=== PATIENT | male | born 1930 | race American Indian/Alaskan Native ===

== ENCOUNTER 2017-12-27 15:13 | Inpatient (IN) | payer MEDICARE ==
[2017-12-27 15:15] VITALS: BMI 21.1
[2017-12-27] MEDS ORDERED: Aspirin 325 mg EC Tablets PO STA (16:15)
[2017-12-27] MEDS ORDERED: Aspirin 325 mg EC Tablets PO ONE (16:27)
--- NOTE | 2017-12-27 16:35 | C.PDOC ---
History Of Present Illness 87-year-old male presents to the ED for evaluation of palpitations which began 3 days ago. Patient states he was referred by his [place] clinic doctor. He denies fever, chills, chest pain, shortness of breath, or history of atrial- fibrillation. Time Seen by Provider: 12/27/17 16:09 Chief Complaint (Nursing): Palpitations History Per: Patient History/Exam Limitations: no limitations Onset/Duration Of Symptoms: Days (3) Current Symptoms Are (Timing): Still Present Associated Symptoms: denies: Chest Pain Additional History Per: Patient Past Medical History Reviewed: Historical Data, Nursing Documentation, Vital Signs Vital Signs: Last Vital Signs Temp 98.1 F 12/27/17 15:44 Pulse 91 H 12/27/17 16:57 Resp 20 12/27/17 16:57 BP 157/115 H 12/27/17 16:57 Pulse Ox 97 12/27/17 16:57 - Medical History PMH: Arthritis (GOUT), Benign Prostatic Hyperplasia, HTN, Malignancy (Prostate) Surgical History: No Surg Hx - [facility] Procedures APPLICATION OF SPLINT (05/13/14) INSERT INDWELLING CATH (03/02/14) Family History: States: Unknown Family Hx - Social History Hx Tobacco Use: No Hx Alcohol Use: Yes Hx Substance Use: No - Immunization History Hx Tetanus Toxoid Vaccination: No Hx Influenza Vaccination: No Hx Pneumococcal Vaccination: No Review Of Systems Constitutional: Negative for: Fever, Chills Cardiovascular: Positive for: Palpitations. Negative for: Chest Pain Respiratory: Negative for: Shortness of Breath Physical Exam - Physical Exam Appears: Non-toxic, No Acute Distress, Other (elderly Black male ) Skin: Normal Color, Warm, Dry Head: Atraumatic, Normacephalic Eye(s): bilateral: Normal Inspection Oral Mucosa: Moist Neck: Supple Chest: Symmetrical, No Deformity, No Tenderness Cardiovascular: Other (irregularly irregular ) Respiratory: Normal Breath Sounds, No Rales, No Rhonchi, No Wheezing Extremity: Normal ROM, Capillary Refill (less than 2 seconds ) Neurological/Psych: Oriented x3, Normal Speech, Normal Cognition ED Course And Treatment - Laboratory Results Result Diagrams: 12/27/17 16:45 12/27/17 16:45 Lab Interpretation: Normal (d-dimer, trop, bnp neg.) ECG: Interpreted By Me, Viewed By Me ECG Rhythm: Atrial Fibrillation Rate From EC O2 Sat by Pulse Oximetry: 99 (on RA) Pulse Ox Interpretation: Normal - Radiology CXR: Interpreted by Me CXR Interpretation: Yes: No Acute Disease, Heart Size (+ megaly) Progress Note: Bloodwork, urinalysis, CXR, EKG ordered and reviewed. Aspirin PO and Lopressor PO, lovenox SQ given. Reevaluation Time: 18:13 Reassessment Condition: Improved - Physician Consult Information Outcome Of Conversation: 1814: d/w Dr. Lvoett, Medicine Auditor In Charge covering insured Service pt's, ok to admit. 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 Excellent physical status and exercise tolerance. Needs no assistance. LOW falls risks. Risk/benefit of anticoagulation favors anticoagulation at this time. Disposition Doctor Will See Patient In The: Hospital Counseled Patient/Family Regarding: Studies Performed, Diagnosis - Disposition Disposition: HOSPITALIZED Disposition Time: 18:15 Condition: GOOD Forms: [employer] (Peruvian) - Clinical Impression Clinical Impression: Palpitations, New onset atrial fibrillation - Scribe Statement The provider has reviewed the documentation as recorded by the Scribe (Nita Dent) Provider Attestation: All medical record entries made by the Scribe were at my direction and personally dictated by me. I have reviewed the chart and agree that the record accurately reflects my personal performance of the history, physical exam, medical decision making, and the department course for this patient. I have also personally directed, reviewed, and agree with the discharge instructions and disposition.
[2017-12-27 16:49] LABS: BASO % 0.9 % (0.0-2.0); EOS # 0.1 K/uL (0.0-0.7); EOS % 3.1 % (0.0-4.0); HEMOGLOBIN 13.2 g/dL (12.0-18.0); LYMPH # 1.3 K/uL (1.0-4.3); LYMPH % 28.1 % (20.0-40.0); MEAN CELL VOLUME 91.1 fL (80.0-94.0); MEAN CORPUSCULAR HEMOGLOBIN 31.4 pg (27.0-31.0); MEAN CORPUSCULAR HGB CONC 34.5 g/dL (33.0-37.0); MEAN PLATELET VOLUME 8.6 fL (7.2-11.7); MONO # 0.6 K/uL (0.0-0.8); MONO % 12.8 % (0.0-10.0); NEUT # 2.6 K/uL (1.8-7.0); NEUT % 55.1 % (50.0-75.0); NRBC % 0.2 % (0.0-2.0); RBC 4.19 Mil/uL (4.40-5.90); RED CELL DISTRIBUTION WIDTH 13.6 % (11.5-14.5); WHITE BLOOD COUNT 4.7 K/uL (4.8-10.8)
[2017-12-27 17:04] LABS: ALB/GLOB RATIO 1.3 (1.0-2.1); ALT/SGPT 33 U/L (21-72); AST/SGOT 42 U/L (17-59); BLOOD UREA NITROGEN 18 mg/dL (9-20); CALCIUM 9.3 mg/dl (8.6-10.4); GFR AFRICAN-AMERICAN > 60; GFR NON-AFRICAN AMERICAN 58
[2017-12-27 17:15] LABS: B-TYPE NATRIURETIC PEPTIDE 2080 pg/mL (0-900)
[2017-12-27 17:19] LABS: INR 1.1; PARTIAL THROMBOPLASTIN TIME 35 SECONDS (21-34); PROTHROMBIN TIME 11.7 SECONDS (9.7-12.2)
[2017-12-27 17:20] LABS: D DIMER < 200 ng/mlDDU (0-243)
[2017-12-27] MEDS ORDERED: Enoxaparin 40 mg Syringe SC STA (18:05)
[2017-12-27] MEDS ORDERED: Enoxaparin 80 mg Syringe ONE (18:10)
[2017-12-27 18:18] LABS: URINE BACTERIA RARE (<OCC); URINE BILIRUBIN NEGATIVE (NEGATIVE); URINE BLOOD NEGATIVE (NEGATIVE); URINE CLARITY Clear (Clear); URINE COLOR Yellow (YELLOW); URINE GLUCOSE (UA) NORMAL (Normal); URINE LEUKOCYTE ESTERASE NEG Leu/uL (Negative); URINE PROTEIN NEGATIVE (NEGATIVE); URINE UROBILINOGEN NORMAL mg/dL (0.2-1.0)
[2017-12-27] MEDS ORDERED: Potassium Chloride 20 mEq/15 ml LIQ UD PO STA (18:53)
[2017-12-27 20:19] LABS: CK-MB 2.72 ng/mL (0.0-3.38); TROPONIN I 0.025 ng/mL (0.00-0.120)
[2017-12-27 21:13] VITALS: RESP 20
[2017-12-28 02:41] LABS: CK-MB 1.57 ng/mL (0.0-3.38); TROPONIN I 0.032 ng/mL (0.00-0.120)
[2017-12-28 09:13] LABS: CK-MB 1.45 ng/mL (0.0-3.38); TROPONIN I 0.034 ng/mL (0.00-0.120)
[2017-12-28] MEDS: Pantoprazole 20 mg EC Tab PO SCH (09:38)
[2017-12-28] MEDS ORDERED: Enoxaparin 40 mg Syringe SC SCH (10:00)
--- NOTE | 2017-12-28 16:42 | RAD ---
PROCEDURE: CHEST RADIOGRAPH, 1 VIEW HISTORY: SOB COMPARISON: 12/21/2015. FINDINGS: LUNGS: The lungs are well inflated and clear. There is left basilar scarring. PLEURA: No pneumothorax or pleural fluid seen. CARDIOVASCULAR: Again seen is mild cardiomegaly. Atherosclerotic aortic arch calcifications are present. OSSEOUS STRUCTURES: No significant abnormalities. VISUALIZED UPPER ABDOMEN: Normal. OTHER FINDINGS: None. IMPRESSION: No active pulmonary disease.
[2017-12-28] MEDS ORDERED: Potassium Chloride 20 mEq ER Tab PO ONE (18:00)
[2017-12-29 09:22] VITALS: PULSE 135; TEMP 98.2; O2SAT 99
[2017-12-29] MEDS: Pantoprazole 20 mg EC Tab PO SCH (09:41)
[2017-12-29 10:39] VITALS: BP 148/96
--- NOTE | 2017-12-29 12:16 | CP.PCM.CON ---
History of Present Illness - History of Present Illness History of Present Illness: 87 year old with HTN, ? prostate disease, presented with palpitation , found with A fib, ? prior hx of A Fib, rate control, consider B patricia, ncoag , follow with echo, TSH, TSH is normal Review of Systems - Constitutional Constitutional: Anorexia, Weakness - EENT Eyes: absent: Discharge Ears: absent: Ear Discharge Nose/Mouth/Throat: absent: Epistaxis - Cardiovascular Cardiovascular: Palpitations. absent: Acrocyanosis, Chest Pain, Leg Edema, Syncope - Respiratory Respiratory: absent: Cough, Hemoptysis, Dyspnea on Exertion - Gastrointestinal Gastrointestinal: absent: Abdominal Pain, Diarrhea, Melena, Vomiting - Genitourinary Genitourinary: absent: Change in Urinary Stream Past Patient History - Infectious Disease Hx of Infectious Diseases: None - Past Social History Smoking Status: Never Smoked - CARDIAC Hx Hypertension: Yes - MUSCULOSKELETAL/RHEUMATOLOGICAL Hx Arthritis: Yes (GOUT) - GENITOURINARY/GYNECOLOGICAL Hx Prostate Cancer: Yes - PSYCHIATRIC Hx Substance Use: No - SURGICAL HISTORY Hx Surgeries: Yes Hx Orthopedic Surgery: Yes - ANESTHESIA Hx Anesthesia: Yes Hx Anesthesia Reactions: No Meds Allergies/Adverse Reactions: Allergies Allergy/AdvReac Type Severity Reaction Status Date / Time No Known Allergies Allergy Verified 03/02/14 06:55 - Medications Medications: Current Medications Apixaban (Eliquis) 5 mg PO Q12 [facility] Last Admin: 12/29/17 09:41 Dose: 5 mg Aspirin (Ecotrin) 81 mg PO DAILY [facility] Last Admin: 12/29/17 09:41 Dose: 81 mg Diltiazem HCl (Cardizem) 30 mg PO QID [facility] Last Admin: 12/29/17 10:38 Dose: 30 mg Finasteride (Proscar) 5 mg PO DAILY [facility] Last Admin: 12/29/17 09:41 Dose: 5 mg Lisinopril (Zestril) 40 mg PO DAILY [facility] Last Admin: 12/29/17 09:41 Dose: 40 mg Pantoprazole Sodium (Protonix Ec Tab) 20 mg PO DAILY [facility] Last Admin: 12/29/17 09:41 Dose: 20 mg Rosuvastatin Calcium (Crestor) 10 mg PO HS [facility] Last Admin: 12/28/17 21:54 Dose: 10 mg Tramadol HCl (Ultram) 50 mg PO TID PRN PRN Reason: Pain, moderate (4-7) Physical Exam - Constitutional Appears: Non-toxic - Head Exam Head Exam: ATRAUMATIC - Eye Exam Eye Exam: EOMI - ENT Exam ENT Exam: TM's Normal Bilaterally - Neck Exam Neck exam: Negative for: Lymphadenopathy, Thyromegaly - Respiratory Exam Respiratory Exam: Clear to Auscultation Bilateral. absent: Rales - Cardiovascular Exam Cardiovascular Exam: REGULAR RHYTHM, Systolic Murmur - GI/Abdominal Exam GI & Abdominal Exam: Normal Bowel Sounds. absent: Organomegaly - Rectal Exam Rectal Exam: Deferred - Extremities Exam Extremities exam: Positive for: normal capillary refill. Negative for: calf tenderness - Neurological Exam Neurological exam: Alert, Oriented x3 - Psychiatric Exam Psychiatric exam: Normal Mood - Skin Skin Exam: Dry Results - Vital Signs Recent Vital Signs: Last Vital Signs Temp 98.2 F 12/29/17 08:10 Pulse 135 H 12/29/17 08:10 Resp 20 12/29/17 08:10 BP 148/96 H 12/29/17 09:00 Pulse Ox 99 12/29/17 08:10 - Labs Result Diagrams: 12/27/17 16:45 12/27/17 16:45 Assessment & Plan (1) New onset atrial fibrillation Status: Acute Comment: Rate controlled, on anticoagulation, consider beta patricia follow-up with echocardiogram (2) Palpitations Status: Acute Comment: Questionable history of atrial fibrillation follow-up with echocardiogram.
--- NOTE | 2017-12-29 17:15 | CP.PCM.PN ---
Subjective - Date & Time of Evaluation Date of Evaluation: 12/29/17 Time of Evaluation: 12:00 - Subjective Subjective: House Doc Note: Patient has decided to leave the hospital against medical advice. The patient is competent and understands the risks of leaving, including permanent disability and/or , and has had an opportunity to ask questions about his/ her condition. Patient accepts all risk and liability. Paper work filed. Attending notified by RN. The patient has been informed that he/she may return for care at any time, and patient will follow-up with PMD urgently. Objective - Vital Signs/Intake and Output Vital Signs (last 24 hours): Temp Pulse Resp BP Pulse Ox 98.2 F 135 H 20 148/96 H 99 12/29/17 08:10 12/29/17 08:10 12/29/17 08:10 12/29/17 09:00 12/29/17 09:00 Intake and Output: 12/29/17 12/29/17 06:59 18:59 Output Total 100 Balance -100 - Labs Labs: 12/27/17 16:45 12/27/17 16:45 PT 11.7 SECONDS (9.7-12.2) 12/27/17 16:45 INR 1.1 12/27/17 16:45 APTT 35 SECONDS (21-34) H 12/27/17 16:45 - Additional Findings Additional findings: Appears: Non-toxic, No Acute Distress Skin: Normal Color, Warm, Dry Head: Atraumatic, Normacephalic Eye(s): bilateral: Normal Inspection Oral Mucosa: Moist Neck: Supple Chest: Symmetrical, No Deformity, No Tenderness Cardiovascular: Irregular Rate, +S1, +S2; No murmur appreciated. Respiratory: Normal Breath Sounds, No Rales, No Rhonchi, No Wheezing Extremity: Normal ROM, Capillary Refill (less than 2 seconds ) Neurological/Psych: Oriented x3, Normal Speech, Normal Cognition
--- NOTE | 2017-12-29 22:01 | CP.PCM.HP ---
History of Present Illness - History of Present Illness History of Present Illness: CC: palpitations History Of Present Illness 87-year-old male presents to the ED for evaluation of palpitations which began 3 days ago. Patient states he was referred by his [place] clinic doctor. He denies fever, chills, chest pain, shortness of breath, or history of atrial- fibrillation. Past Patient History - Infectious Disease Hx of Infectious Diseases: None - Past Medical History & Family History Past Medical History?: Yes - Past Social History Smoking Status: Never Smoked - CARDIAC Hx Hypertension: Yes - PULMONARY Hx Respiratory Disorders: No - NEUROLOGICAL Hx Neurological Disorder: No - HEENT Hx HEENT Problems: No - RENAL Hx Chronic Kidney Disease: No - ENDOCRINE/METABOLIC Hx Endocrine Disorders: No - HEMATOLOGICAL/ONCOLOGICAL Hx Blood Disorders: No - MUSCULOSKELETAL/RHEUMATOLOGICAL Hx Arthritis: Yes (GOUT) - GASTROINTESTINAL Hx Gastrointestinal Disorders: No - GENITOURINARY/GYNECOLOGICAL Hx Prostate Cancer: Yes - PSYCHIATRIC Hx Substance Use: No - SURGICAL HISTORY Hx Surgeries: Yes Hx Orthopedic Surgery: Yes - ANESTHESIA Hx Anesthesia: Yes Hx Anesthesia Reactions: No Meds Allergies/Adverse Reactions: Allergies Allergy/AdvReac Type Severity Reaction Status Date / Time No Known Allergies Allergy Verified 03/02/14 06:55 Results - Vital Signs Recent Vital Signs: Last Vital Signs Temp 98.2 F 12/29/17 08:10 Pulse 135 H 12/29/17 08:10 Resp 20 12/29/17 08:10 BP 148/96 H 12/29/17 09:00 Pulse Ox 99 12/29/17 09:00 - Labs Result Diagrams: 12/27/17 16:45 12/27/17 16:45
--- NOTE | 2017-12-29 22:02 | CP.PCM.PN ---
Subjective - Date & Time of Evaluation Date of Evaluation: 12/28/17 Time of Evaluation: 19:00 - Subjective Subjective: 87 year old with HTN, ? prostate disease, presented with palpitation , found with A fib, ? prior hx of A Fib, rate control, consider B patricia, ncoag , follow with echo, TSH Objective - Vital Signs/Intake and Output Vital Signs (last 24 hours): Temp Pulse Resp BP Pulse Ox 98.2 F 135 H 20 148/96 H 99 12/29/17 08:10 12/29/17 08:10 12/29/17 08:10 12/29/17 09:00 12/29/17 09:00 - Labs Labs: 12/27/17 16:45 12/27/17 16:45 PT 11.7 SECONDS (9.7-12.2) 12/27/17 16:45 INR 1.1 12/27/17 16:45 APTT 35 SECONDS (21-34) H 12/27/17 16:45
--- NOTE | 2017-12-29 22:04 | CP.PCM.DIS ---
Provider - Provider Date of Admission: 12/29/17 09:56 Attending physician: Arnulfo Lovett MD Time Spent in preparation of Discharge (in minutes): 45 Hospital Course - Lab Results Lab Results: Most Recent Lab Values WBC 4.7 K/uL (4.8-10.8) L 12/27/17 16:45 RBC 4.19 Mil/uL (4.40-5.90) L 12/27/17 16:45 Hgb 13.2 g/dL (12.0-18.0) 12/27/17 16:45 Hct 38.2 % (35.0-51.0) 12/27/17 16:45 MCV 91.1 fL (80.0-94.0) 12/27/17 16:45 MCH 31.4 pg (27.0-31.0) H 12/27/17 16:45 MCHC 34.5 g/dL (33.0-37.0) 12/27/17 16:45 RDW 13.6 % (11.5-14.5) 12/27/17 16:45 Plt Count 143 K/uL (130-400) D 12/27/17 16:45 MPV 8.6 fL (7.2-11.7) 12/27/17 16:45 Neut % (Auto) 55.1 % (50.0-75.0) 12/27/17 16:45 Lymph % (Auto) 28.1 % (20.0-40.0) 12/27/17 16:45 [place] % (Auto) 12.8 % (0.0-10.0) H 12/27/17 16:45 Eos % (Auto) 3.1 % (0.0-4.0) 12/27/17 16:45 Baso % (Auto) 0.9 % (0.0-2.0) 12/27/17 16:45 Neut # (Auto) 2.6 K/uL (1.8-7.0) 12/27/17 16:45 Lymph # (Auto) 1.3 K/uL (1.0-4.3) 12/27/17 16:45 [place] # (Auto) 0.6 K/uL (0.0-0.8) 12/27/17 16:45 Eos # (Auto) 0.1 K/uL (0.0-0.7) 12/27/17 16:45 Baso # (Auto) 0.0 K/uL (0.0-0.2) 12/27/17 16:45 PT 11.7 SECONDS (9.7-12.2) 12/27/17 16:45 INR 1.1 12/27/17 16:45 APTT 35 SECONDS (21-34) H 12/27/17 16:45 D-Dimer, Quantitative < 200 ng/mlDDU (0-243) 12/27/17 16:45 Sodium 142 mmol/L (132-148) 12/27/17 16:45 Potassium 3.5 mmol/L (3.6-5.2) L 12/27/17 16:45 Chloride 102 mmol/L (98-107) 12/27/17 16:45 Carbon Dioxide 31 mmol/L (22-30) H 12/27/17 16:45 Anion Gap 13 (10-20) 12/27/17 16:45 BUN 18 mg/dL (9-20) 12/27/17 16:45 Creatinine 1.2 mg/dL (0.8-1.5) 12/27/17 16:45 Est GFR ( Amer) > 60 12/27/17 16:45 Est GFR (Non-Af Amer) 58 12/27/17 16:45 Random Glucose 135 mg/dL (75-110) H 12/27/17 16:45 Calcium 9.3 mg/dl (8.6-10.4) 12/27/17 16:45 Total Bilirubin 1.3 mg/dL (0.2-1.3) 12/27/17 16:45 AST 42 U/L (17-59) 12/27/17 16:45 ALT 33 U/L (21-72) 12/27/17 16:45 Alkaline Phosphatase 99 U/L (38-126) 12/27/17 16:45 Total Creatine Kinase 91 U/L (55-170) 12/28/17 08:37 CK-MB (Mass) 1.45 ng/mL (0.0-3.38) 12/28/17 08:37 Troponin I 0.0340 ng/mL (0.00-0.120) 12/28/17 08:37 NT-Pro-B Natriuret Pep 2080 pg/mL (0-900) H 12/27/17 16:45 Total Protein 7.1 g/dL (6.3-8.3) 12/27/17 16:45 Albumin 4.0 g/dL (3.5-5.0) 12/27/17 16:45 Globulin 3.1 gm/dL (2.2-3.9) 12/27/17 16:45 Albumin/Globulin Ratio 1.3 (1.0-2.1) 12/27/17 16:45 TSH 3rd Generation 0.77 mIU/L (0.46-4.68) 12/27/17 19:49 Urine Color Yellow (YELLOW) 12/27/17 18:08 Urine Clarity Clear (Clear) 12/27/17 18:08 Urine pH 7.0 (5.0-8.0) 12/27/17 18:08 Ur Specific [place] 1.015 (1.003-1.030) 12/27/17 18:08 Urine Protein Negative mg/dL (NEGATIVE) 12/27/17 18:08 Urine Glucose (UA) Normal mg/dL (Normal) 12/27/17 18:08 Urine Ketones Negative mg/dL (NEGATIVE) 12/27/17 18:08 Urine Blood Negative (NEGATIVE) 12/27/17 18:08 Urine Nitrate Negative (NEGATIVE) 12/27/17 18:08 Urine Bilirubin Negative (NEGATIVE) 12/27/17 18:08 Urine Urobilinogen Normal mg/dL (0.2-1.0) 12/27/17 18:08 Ur Leukocyte Esterase Neg Carly/uL (Negative) 12/27/17 18:08 Urine WBC (Auto) 4 /hpf (0-5) 12/27/17 18:08 Urine RBC (Auto) 2 /hpf (0-3) 12/27/17 18:08 Urine Bacteria Rare (<OCC) 12/27/17 18:08 - Hospital Course Hospital Course: Patient has decided to leave the hospital against medical advice. The patient is competent and understands the risks of leaving, including permanent disability and/or , and has had an opportunity to ask questions about his/ her condition. Patient accepts all risk and liability. Paper work filed. Attending notified by RN. The patient has been informed that he/she may return for care at any time, and patient will follow-up with PMD urgently. Discharge Plan - Follow Up Plan Condition: GOOD Disposition: AGAINST MEDICAL ADVICE
== END 2017-12-29 12:00 | disposition left against medical advice (07) | DRG 310 ==
LOC: C.ER 15:13 → C.9E 18:08 → C.6T 19:36 → OBSVTOIN 12-29 09:56
PROVIDERS: ADMIT Internal Medicine; ATTEND Internal Medicine
DX: I48.91 Unspecified atrial fibrillation (principal); I10 Essential (primary) hypertension; N40.0 Benign prostatic hyperplasia without lower urinary tract symptoms; Z85.46 Personal history of malignant neoplasm of prostate; M10.9 Gout, unspecified

== ENCOUNTER 2018-08-25 10:08 | Inpatient (IN) | payer MEDICARE ==
[2018-08-25 10:08] VITALS: BMI 21.1
--- NOTE | 2018-08-25 10:42 | C.PDOC ---
History Of Present Illness 88 y/o M c PMHx afib, CHF p/w palpitaitons today and worsenining dyspnea on exertion for years. States that dyspnea and palpitations have been worsening, becoming more frequent and more severe. Denies fever, chills, chest pain, sympt oms currently. Time Seen by Provider: 08/25/18 10:14 Chief Complaint (Nursing): Shortness Of Breath Past Medical History Vital Signs: Last Vital Signs Temp 97.5 F L 08/25/18 10:15 Pulse 89 08/25/18 10:15 Resp 22 08/25/18 10:15 BP 161/101 H 08/25/18 10:15 Pulse Ox 98 08/25/18 10:37 - Medical History PMH: Arthritis (GOUT), Atrial Fibrillation, Benign Prostatic Hyperplasia, HTN, Malignancy (Prostate) Denies: Chronic Kidney Disease - [facility] Procedures APPLICATION OF SPLINT (05/13/14) INSERT INDWELLING CATH (03/02/14) Family History: States: Unknown Family Hx - Social History Hx Tobacco Use: No Hx Alcohol Use: No Hx Substance Use: No - Immunization History Hx Tetanus Toxoid Vaccination: No Hx Influenza Vaccination: No Hx Pneumococcal Vaccination: No Review Of Systems Except As Marked, All Systems Reviewed And Found Negative. Constitutional: Negative for: Fever Gastrointestinal: Negative for: Vomiting Physical Exam - Physical Exam Additional Physical Exam Comments: Constitutional: No acute distress. Head: Normocephalic. Atraumatic. Eyes: PERRL. ENT: Moist mucous membranes. Neck: Supple. Cardiovascular: Irregular rhythm.Regular rate. Radial pulse 2+ bilaterally. Chest: No tenderness. Respiratory: Clear to auscultation bilaterally. GI: Soft. Nontender. Nondistended. Back: No CVA tenderness. Musculoskeletal: Bilateral pitting edema. No tenderness of extremities. Skin: No rash. Neurologic: Alert, no focal deficit. ED Course And Treatment - Laboratory Results Result Diagrams: 08/25/18 10:56 08/25/18 10:56 O2 Sat by Pulse Oximetry: 98 Medical Decision Making Medical Decision Making: EKG Afib 90 bpm, no ST elevations. Impression: Small bilateral pleural effusions. Focal consolidation in the right hilar region and right lung base. Additional patchy consolidative opacification at the left lung base. Cardiomegaly. Atherosclerotic calcification at the aortic knob. Lasix administered. Dr. Quiroz away, Dr. Reynolds accepts patient to medical service. Disposition - Disposition Disposition: HOSPITALIZED Disposition Time: 12:00 Condition: GUARDED Forms: [employer] ([place]) - Clinical Impression Clinical Impression: CHF exacerbation
[2018-08-25 11:01] LABS: BASO % 0.9 % (0.0-2.0); EOS # 0.1 K/uL (0.0-0.7); EOS % 1.7 % (0.0-4.0); HEMOGLOBIN 11.6 g/dL (12.0-18.0); LYMPH % 22.3 % (20.0-40.0); MEAN CELL VOLUME 88.4 fL (80.0-94.0); MEAN CORPUSCULAR HEMOGLOBIN 28.2 pg (27.0-31.0); MEAN CORPUSCULAR HGB CONC 31.9 g/dL (33.0-37.0); MEAN PLATELET VOLUME 8.6 fL (7.2-11.7); MONO # 0.4 K/uL (0.0-0.8); MONO % 8.7 % (0.0-10.0); NEUT # 2.9 K/uL (1.8-7.0); NEUT % 66.4 % (50.0-75.0); NRBC % 0.1 % (0.0-2.0); RBC 4.13 Mil/uL (4.40-5.90); RED CELL DISTRIBUTION WIDTH 16.1 % (11.5-14.5); WHITE BLOOD COUNT 4.4 K/uL (4.8-10.8)
[2018-08-25 11:09] LABS: INR 1.5; PROTHROMBIN TIME 16.9 SECONDS (9.7-12.2)
[2018-08-25 11:14] LABS: ALB/GLOB RATIO 1.1 (1.0-2.1); ALBUMIN 3.6 g/dL (3.5-5.0); ALT/SGPT 32 U/L (21-72); AST/SGOT 33 U/L (17-59); BLOOD UREA NITROGEN 15 mg/dL (9-20); CALCIUM 8.9 mg/dl (8.6-10.4); GFR NON-AFRICAN AMERICAN > 60
[2018-08-25 11:26] LABS: B-TYPE NATRIURETIC PEPTIDE 18000 pg/mL (0-900); CK-MB 1.17 ng/mL (0.0-3.38)
--- NOTE | 2018-08-25 12:13 | RAD ---
Chest x-ray single frontal view HISTORY: Dyspnea on exertion. Comparison: 12/27/2017 Findings: Small bilateral pleural effusions. Focal consolidation in the right hilar region and right lung base. Additional patchy consolidative opacification at the left lung base. Cardiomegaly. Atherosclerotic calcification at the aortic knob. Degenerative changes in the spine and shoulders. Impression: Small bilateral pleural effusions. Focal consolidation in the right hilar region and right lung base. Additional patchy consolidative opacification at the left lung base. Cardiomegaly. Atherosclerotic calcification at the aortic knob.
--- NOTE | 2018-08-25 16:10 | CARD ---
APPROVED REPORT Date of service: 08/25/2018 EKG Measurement Heart [id number] <Conclusion> Atrial fibrillation Anterolateral infarct, age undetermined Abnormal ECG
--- NOTE | 2018-08-25 19:19 | CP.PCM.HP ---
History of Present Illness - History of Present Illness History of Present Illness: pt came to ed for progressive sob Present on Admission - Present on Admission Any Indicators Present on Admission: No Review of Systems - Review of Systems Systems not reviewed;Unavailable: Acuity of Condition - Constitutional Constitutional: Fatigue - EENT Eyes: As Per HPI Ears: As Per HPI Nose/Mouth/Throat: As Per HPI - Cardiovascular Cardiovascular: Dyspnea, Leg Edema - Respiratory Respiratory: Dyspnea, Dyspnea on Exertion - Gastrointestinal Gastrointestinal: As Per HPI - Genitourinary Genitourinary: As Per HPI - Reproductive: Male Reproductive:Male: As Per HPI - Musculoskeletal Musculoskeletal: As Per HPI - Integumentary Integumentary: As Per HPI - Psychiatric Psychiatric: As Per HPI - Endocrine Endocrine: As Per HPI - Hematologic/Lymphatic Hematologic: As Per HPI Past Patient History - Infectious Disease Hx of Infectious Diseases: None - Past Medical History & Family History Past Medical History?: Yes - Past Social History Smoking Status: Never Smoked - CARDIAC Hx Atrial Fibrillation: Yes Hx Hypertension: Yes - PULMONARY Hx Respiratory Disorders: No - NEUROLOGICAL Hx Neurological Disorder: No - HEENT Hx HEENT Problems: No - RENAL Hx Chronic Kidney Disease: No - ENDOCRINE/METABOLIC Hx Endocrine Disorders: No - HEMATOLOGICAL/ONCOLOGICAL Hx Blood Disorders: No - MUSCULOSKELETAL/RHEUMATOLOGICAL Hx Arthritis: Yes (GOUT) - GASTROINTESTINAL Hx Gastrointestinal Disorders: No - GENITOURINARY/GYNECOLOGICAL Hx Prostate Cancer: Yes - PSYCHIATRIC Hx Substance Use: No - SURGICAL HISTORY Hx Surgeries: Yes Hx Orthopedic Surgery: Yes - ANESTHESIA Hx Anesthesia: Yes Hx Anesthesia Reactions: No Meds Allergies/Adverse Reactions: Allergies Allergy/AdvReac Type Severity Reaction Status Date / Time No Known Allergies Allergy Verified 08/25/18 10:22 Physical Exam - Constitutional Appears: Non-toxic - Head Exam Head Exam: ATRAUMATIC - Eye Exam Eye Exam: Normal appearance Pupil Exam: NORMAL ACCOMODATION - ENT Exam ENT Exam: Normal Exam - Neck Exam Neck exam: Positive for: Full Rom - Respiratory Exam Respiratory Exam: Decreased Breath Sounds - Cardiovascular Exam Cardiovascular Exam: Irregular Rhythm, +S1, +S2, +S4 - GI/Abdominal Exam GI & Abdominal Exam: Normal Bowel Sounds - Rectal Exam Rectal Exam: Deferred - Extremities Exam Extremities exam: Positive for: pedal edema - Back Exam Back exam: NORMAL INSPECTION - Neurological Exam Neurological exam: Alert, Oriented x3 - Psychiatric Exam Psychiatric exam: Normal Affect - Skin Skin Exam: Normal Color Results - Vital Signs Recent Vital Signs: Last Vital Signs Temp 98.3 F 08/25/18 15:34 Pulse 83 08/25/18 15:34 Resp 20 08/25/18 15:34 BP 145/89 08/25/18 15:34 Pulse Ox 100 08/25/18 15:34 - Labs Result Diagrams: 08/25/18 10:56 08/25/18 10:56 Labs: Laboratory Results - last 24 hr 08/25/18 08/25/18 08/25/18 10:56 10:56 10:56 WBC 4.4 L RBC 4.13 L Hgb 11.6 L Hct 36.5 MCV 88.4 D MCH 28.2 MCHC 31.9 L RDW 16.1 H Plt Count 190 MPV 8.6 Neut % (Auto) 66.4 Lymph % (Auto) 22.3 [place] % (Auto) 8.7 Eos % (Auto) 1.7 Baso % (Auto) 0.9 Neut # (Auto) 2.9 Lymph # (Auto) 1.0 [place] # (Auto) 0.4 Eos # (Auto) 0.1 Baso # (Auto) 0.0 PT 16.9 H INR 1.5 APTT 36 H Sodium 142 Potassium 4.0 Chloride 106 Carbon Dioxide 29 Anion Gap 11 BUN 15 Creatinine 1.0 Est GFR ( Amer) > 60 Est GFR (Non-Af Amer) > 60 Random Glucose 189 H D Calcium 8.9 Total Bilirubin 1.9 H AST 33 ALT 32 Alkaline Phosphatase 112 Total Creatine Kinase 52 L CK-MB (Mass) 1.17 Troponin I 0.0340 NT-Pro-B Natriuret Pep 10644 H Total Protein 6.7 Albumin 3.6 Globulin 3.1 Albumin/Globulin Ratio 1.1 Assessment & Plan - Assessment and Plan (Free Text) Assessment: exacerbation chf at fibrilation hyperglyceamia htn Plan: as per orders - Date & Time Date: 08/25/18 Time: 19:23
[2018-08-25] MEDS: Metoprolol Succinate 25 mg XL Tab PO SCH (19:49)
[2018-08-25] MEDS: Enoxaparin 60 mg Syringe SC SCH (22:57)
[2018-08-26 07:39] LABS: HEMOGLOBIN 10.9 g/dL (12.0-18.0); MEAN CELL VOLUME 88.4 fL (80.0-94.0); MEAN CORPUSCULAR HEMOGLOBIN 28.1 pg (27.0-31.0); MEAN CORPUSCULAR HGB CONC 31.8 g/dL (33.0-37.0); MEAN PLATELET VOLUME 8.8 fL (7.2-11.7); RBC 3.88 Mil/uL (4.40-5.90); RED CELL DISTRIBUTION WIDTH 16.7 % (11.5-14.5)
[2018-08-26 07:53] LABS: ALT/SGPT 25 U/L (21-72); AST/SGOT 28 U/L (17-59); BLOOD UREA NITROGEN 18 mg/dL (9-20); CALCIUM 8.9 mg/dl (8.6-10.4); GFR NON-AFRICAN AMERICAN > 60
[2018-08-26 07:55] LABS: B-TYPE NATRIURETIC PEPTIDE 15100 pg/mL (0-900)
[2018-08-26] MEDS: Metoprolol Succinate 25 mg XL Tab PO SCH (10:16)
[2018-08-26] MEDS: Calcium-Vit D 500 mg-200 Units Tab UD PO SCH (10:16)
[2018-08-26] MEDS: Enoxaparin 60 mg Syringe SC SCH ×2 (10:36→23:36)
--- NOTE | 2018-08-26 11:01 | CP.PCM.PN ---
Subjective - Date & Time of Evaluation Date of Evaluation: 08/26/18 Time of Evaluation: 10:59 - Subjective Subjective: PT STILL HAS SOB HAS ANEAMIA Objective - Vital Signs/Intake and Output Vital Signs (last 24 hours): Temp Pulse Resp BP Pulse Ox 97.9 F 70 20 135/67 100 08/26/18 00:15 08/26/18 07:42 08/26/18 00:15 08/26/18 10:35 08/26/18 00:15 Intake and Output: 08/26/18 08/26/18 06:59 18:59 Intake Total 0 Output Total 800 Balance -800 - Medications Medications: Current Medications Allopurinol (Zyloprim) 100 mg PO DAILY [facility] Last Admin: 08/26/18 10:16 Dose: 100 mg Aspirin (Aspirin Chewable) 81 mg PO DAILY [facility] Last Admin: 08/26/18 10:16 Dose: 81 mg Calcium/Vitamin D (Oyster Shell Calcium/Vitamin D 500 Mg-200 Iu) 1 tab PO DAILY [facility] Last Admin: 08/26/18 10:16 Dose: 1 tab Enoxaparin Sodium (Lovenox) 60 mg SC Q12 [facility] Last Admin: 08/26/18 10:36 Dose: 60 mg Furosemide (Lasix) 40 mg IVP DAILY [facility] Last Admin: 08/26/18 10:35 Dose: 40 mg Indomethacin (Indocin) 25 mg PO TID PRN PRN Reason: pain Influenza Virus Vaccine (Flucelvax Quad [id number] Syr) 60 mcg IM .ONCE ONE Stop: 08/27/18 10:01 Lisinopril (Zestril) 40 mg PO DAILY [facility] Last Admin: 08/26/18 10:15 Dose: 40 mg Metoprolol Succinate (Toprol Xl) 25 mg PO DAILY [facility] Last Admin: 08/26/18 10:16 Dose: 25 mg Pneumococcal Polyvalent Vaccine (Pneumovax 23 Vaccine) 0.5 ml IM .ONCE ONE Stop: 08/27/18 10:01 Tamsulosin HCl (Flomax) 0.4 mg PO DAILY [facility] Last Admin: 08/26/18 10:35 Dose: 0.4 mg Thiamine HCl (Vitamin B1 Tab) 100 mg PO DAILY [facility] Last Admin: 08/26/18 10:16 Dose: 100 mg - Labs Labs: 08/26/18 07:04 08/26/18 07:04 PT 16.9 SECONDS (9.7-12.2) H 08/25/18 10:56 INR 1.5 08/25/18 10:56 APTT 36 SECONDS (21-34) H 08/25/18 10:56 - Constitutional Appears: Non-toxic - Head Exam Head Exam: ATRAUMATIC - Eye Exam Eye Exam: Normal appearance Pupil Exam: NORMAL ACCOMODATION - ENT Exam ENT Exam: Mucous Membranes Moist - Respiratory Exam Respiratory Exam: Decreased Breath Sounds - Cardiovascular Exam Cardiovascular Exam: REGULAR RHYTHM - GI/Abdominal Exam GI & Abdominal Exam: Normal Bowel Sounds - Extremities Exam Additional comments: OEADEAMA - Back Exam Back Exam: NORMAL INSPECTION - Neurological Exam Neurological Exam: Alert, Awake, Oriented x3 - Psychiatric Exam Psychiatric exam: Normal Affect - Skin Skin Exam: Pallor Assessment and Plan - Assessment and Plan (Free Text) Assessment: CHF ANEAMIA Plan: PER ORDERS
[2018-08-26] MEDS ORDERED: Iohexol 240 (50 ml) PO ONE (11:30)
--- NOTE | 2018-08-26 15:47 | CARD ---
APPROVED REPORT Date of service: 08/26/2018 EXAM: Two-dimensional and M-mode echocardiogram with Doppler and color Doppler. Other Information Quality : GoodRhythm : INDICATION Dyspnea Congestive Heart Failure Palpitations RISK FACTORS Hypertension Hyperlipidemia 2D DIMENSIONS IVSd1.6 (0.7-1.1cm)LVDd4.5 (3.9-5.9cm) PWd1.7 (0.7-1.1cm)LA Jbnsup126 (18-58mL) LVDs4.0 (2.5-4.0cm)FS (%) 10.5 % LVEF (%)33.0 (>50%)LVEF (Baker's)33.61 % IVC0.00 cm M-Mode DIMENSIONS RVDd2.64 (2.1-3.2cm)Left Atrium (MM)4.95 (2.5-4.0cm) IVSd0.98 (0.7-1.1cm)Aortic Root3.27 (2.2-3.7cm) LVDd6.25 (4.0-5.6cm)Aortic Cusp Exc.2.21 (1.5-2.0cm) PWd0.91 (0.7-1.1cm)FS (%) 15 % LVDs5.30 (2.0-3.8cm)TAPSE16.05 cm LVEF (%)31 (>50%) Mitral Valve MV E Lpffkkhx46.0cm/sMV A Jccqudsz59.6cm/sE/A ratio2.1 QLRG228.87 cm/s TDI Lateral E' Peak V7.96cm/sMedial E' Peak V4.35cm/sE/Lateral E'9.7 E/Medial E'17.7 Tricuspid Valve TR Peak Hzwspsjg437nx/sTR Peak Gr.96miPqHIWG25diHj LEFT VENTRICLE The left ventricle is normal size. There is mild to moderate concentric left ventricular hypertrophy. The systolic function is severely impaired. There is global hypokinesis of the left ventricle. No left ventricle thrombus noted on this study. RIGHT VENTRICLE The right ventricle is normal size. There is normal right ventricular wall thickness. Systolic function is moderately reduced. ATRIA The left atrium is moderately dilated. The right atrium is moderately dilated. AORTIC VALVE The aortic valve is mildly thickened. No aortic regurgitation is present. MITRAL VALVE The mitral valve is normal in structure. There is no mitral valve stenosis. Mitral regurgitation is moderate to severe. TRICUSPID VALVE The tricuspid valve is normal in structure. There is moderate to severe tricuspid regurgitation. There is mild to moderate pulmonary hypertension. PULMONIC VALVE There is moderate pulmonic valvular regurgitation. GREAT VESSELS The aortic root is normal in size. The IVC is dilated. PERICARDIAL EFFUSION There is a small pericardial effusion. There is moderate pleural effusion. <Conclusion> The left ventricle is normal size. There is mild to moderate concentric left ventricular hypertrophy. The systolic function is severely impaired. There is global hypokinesis of the left ventricle. Mitral regurgitation is moderate to severe. There is moderate to severe tricuspid regurgitation. There is mild to moderate pulmonary hypertension. There is moderate pulmonic valvular regurgitation. There is moderate pleural effusion.
--- NOTE | 2018-08-26 16:24 | CT ---
Date of service: 08/26/2018 PROCEDURE: CT Abdomen and Pelvis with contrast HISTORY: ANEAMIA COMPARISON: None. TECHNIQUE: Helical CT of the abdomen and pelvis was performed following oral contrast administration only. Intravenous contrast was not administered as per referring physician request. Coronal and sagittal reformats were generated. Contrast dose: None Radiation dose: Total exam DLP = 849.31 mGy-cm. This CT exam was performed using one or more of the following dose reduction techniques: Automated exposure control, adjustment of the mA and/or kV according to patient size, and/or use of iterative reconstruction technique. FINDINGS: LOWER THORAX: Cardiomegaly is noted as well as large right pleural effusion and mild left pleural effusion. These exerts compression atelectasis at the bilateral lower lobes at their respective sides with linear atelectasis identified at the right middle lobe as well. Underlying pneumonia is not excluded bilaterally. LIVER: Unremarkable. No gross lesion or ductal dilatation. GALLBLADDER AND BILE DUCTS: Gallbladder is contracted. No radiodense cholelithiasis identified in the lumen. PANCREAS: Unremarkable. No gross lesion or ductal dilatation. SPLEEN: Unremarkable. ADRENALS: Unremarkable. No mass. KIDNEYS AND URETERS: Unremarkable. No hydronephrosis. No solid mass. VASCULATURE: Nonaneurysmal abdominal aortic calcific atherosclerotic changes are identified. BOWEL: No bowel obstruction identified. No gross mural thickening. Process small bowel appears normal. Moderate retained fecal material scattered throughout various large-bowel segments, primarily at the right hemicolon. No large mass identified. Evaluation of the bowel that is unopacified is compromised by extensive anasarca. APPENDIX: Not identified. PERITONEUM: Limited abdominal ascites identified. Increased density seen throughout the intra and extra abdominal fat compatible with anasarca, appear relatively prominent. LYMPH NODES: Unremarkable. No enlarged lymph nodes. BLADDER: Unremarkable. REPRODUCTIVE: Enlarged prostate gland identified. BONES: No acute fracture. OTHER FINDINGS: None. IMPRESSION: 1. No findings directly attributable to neoplasm appreciated. Lack venous contrast at the presence of relatively prominent anasarca limits interpretation. 2. Abdominal ascites. 3. Incidental large right pleural effusion, mild left pleural effusion. Cardiomegaly noted.
--- NOTE | 2018-08-26 23:21 | CON ---
DATE: 08/26/2018 CARDIOLOGY CONSULTATION REASON FOR CONSULTATION: Atrial fibrillation and exacerbation of congestive heart failure. HISTORY OF PRESENT ILLNESS: The patient is an 88-year-old male is an US , presented because of shortness of breath and palpitation. The patient is being treated at the [facility] but at this time, he decided to come to [facility] because it is closer to him according to the patient. The patient was admitted in 12/2017 last year for atrial fibrillation. The patient has a history of prostatic carcinoma and was treated by Dr. Bashir in the past. SOCIAL HISTORY: The patient is a former smoker. He is nondrinker. CURRENT MEDICATIONS: Aspirin 81 mg once a day, Flomax 0.4 mg once a day, Indocin 25 mg t.i.d., Lasix 20 mg intravenous daily, Lovenox 60 mg subcutaneous once a day, Toprol-XL 25 mg once a day, thiamine 100 mg once a day, Zestril 40 mg once a day, allopurinol 100 mg daily. REVIEW OF SYSTEMS: No nausea or vomiting. No fever or chills. No dizziness or syncope. PAST MEDICAL HISTORY: Hypertension, gouty arthritis, prostatic CA, congestive heart failure, and atrial fibrillation. PHYSICAL EXAMINATION: GENERAL: The patient is an elderly male who does not appear to be in acute distress. VITAL SIGNS: Blood pressure 151/93, heart rate 72, temperature 97.9, respirations 20. HEENT: Pale conjunctivae. CHEST: Bibasilar crackles. HEART: S1 and S2 are regular. ABDOMEN: Soft. EXTREMITIES: Trace leg edema. LABORATORY DATA: Hemoglobin and hematocrit 10.9 and 34.3, white count , and platelet counts 168,000. Today's SMA-7: Sodium 141, potassium 3.7, chloride 103, CO2 of 34, glucose 137, BUN 18, creatinine 1. ProBNP is 18,000. Troponin 0.034 and 0.048. INR is 1.5. D-dimer is less than 200. Chest x-ray revealed cardiomegaly, mild CHF, right lower lobe infiltrate, and possible effusion. EKG revealed atrial fibrillation and anterolateral infarct of indeterminate age. ASSESSMENT: 1. Exacerbation of congestive heart failure. 2. Chronic atrial fibrillation. 3. History of prostatic carcinoma. 4. Uncontrolled diabetes mellitus. RECOMMENDATIONS: Continue aspirin 81 mg once a day, Indocin 25 mg t.i.d. Increase Lasix to 40 mg intravenously twice a day. Continue subcutaneous Lovenox 60 mg twice a day, Toprol-XL 25 mg once a day, thiamine 100 mg once a day, Zestril 40 mg once a day. I will review the echocardiographic study performed today. Stewart Bloom MD
[2018-08-27 08:16] LABS: ALB/GLOB RATIO 1.1 (1.0-2.1); ALBUMIN 3.2 g/dL (3.5-5.0); ALT/SGPT 30 U/L (21-72); AST/SGOT 35 U/L (17-59); BLOOD UREA NITROGEN 18 mg/dL (9-20); GFR NON-AFRICAN AMERICAN > 60
[2018-08-27] MEDS: Metoprolol Succinate 25 mg XL Tab PO SCH (09:43)
[2018-08-27] MEDS: Enoxaparin 60 mg Syringe SC SCH (09:45)
[2018-08-27] MEDS: Calcium-Vit D 500 mg-200 Units Tab UD PO SCH (09:46)
[2018-08-27] MEDS ORDERED: Pneumococcal 23-Valent Vaccine IM ONE (10:00)
[2018-08-27] MEDS ORDERED: Influenza Vaccine 60 mcg/0.5 mL SYR (4YR UP) IM ONE (10:00)
--- NOTE | 2018-08-27 10:44 | PCM.SURG1 ---
Surgeon's Initial Post Op Note - Surgeon's Notes Surgeon: Tom Callahan MD [employer]liance [employer] Counter Clerk: None Type of Anesthesia: Local Pre-Operative Diagnosis: Right pleural effusion Operative Findings: US showed a large right effusion Post-Operative Diagnosis: Right pleural effusion Operation Performed: US guided right thoracentesis Specimen/Specimens Removed: 1300 cc of straw colored fluid Estimated Blood Loss: EBL {In ML}: 0 Blood Products Given: N/A Drains Used: No Drains Post-Op Condition: Fair Date of Surgery/Procedure: 08/27/18 Time of Surgery/Procedure: 10:40
--- NOTE | 2018-08-27 12:58 | US ---
PROCEDURE: Date of procedure: 08/27/2018 Procedure: 1. Ultrasound-guided Right thoracentesis, CPT 31530 Medications: 6cc 1% Lidocaine HISTORY: Right pleural effusion, shortness of breath TECHNIQUE: Following informed consent ,the Patients' right chest was marked. Procedure time-out was called, and the patient was placed in the sitting position and limited ultrasound showed a large right effusion. The patient's right back was prepped and draped in the usual sterile fashion. After the skin was anesthetized with lidocaine, a drainage catheter was advanced under ultrasound guidance into the pleural space. Ultrasound-guided thoracentesis was performed. A total of 1300 cubic centimeters of straw-colored fluid removed without complication. A Xeroform dressing was applied. IMPRESSION: Ultrasound guided Right thoracentesis. There were no immediate complications.
[2018-08-27 14:13] LABS: BODY FLUID TYPE PLEURAL
--- NOTE | 2018-08-27 14:33 | CP.PCM.PN ---
Subjective - Date & Time of Evaluation Date of Evaluation: 08/27/18 Time of Evaluation: 14:30 - Subjective Subjective: pt had plerosyntethesis a lot of fluid removed breathing beter Objective - Vital Signs/Intake and Output Vital Signs (last 24 hours): Temp Pulse Resp BP Pulse Ox 97.9 F 65 20 127/74 98 08/27/18 08:36 08/27/18 08:36 08/27/18 08:36 08/27/18 09:45 08/27/18 08:36 Intake and Output: 08/27/18 08/27/18 06:59 18:59 Output Total 400 Balance -400 - Medications Medications: Current Medications Allopurinol (Zyloprim) 100 mg PO DAILY [facility] Last Admin: 08/27/18 09:42 Dose: 100 mg Aspirin (Aspirin Chewable) 81 mg PO DAILY [facility] Last Admin: 08/27/18 09:42 Dose: 81 mg Calcium/Vitamin D (Oyster Shell Calcium/Vitamin D 500 Mg-200 Iu) 1 tab PO DAILY [facility] Last Admin: 08/27/18 09:46 Dose: 1 tab Enoxaparin Sodium (Lovenox) 60 mg SC Q12 [facility] Last Admin: 08/27/18 09:45 Dose: Not Given Furosemide (Lasix) 40 mg IVP BID [facility] Last Admin: 08/27/18 09:45 Dose: 40 mg Indomethacin (Indocin) 25 mg PO TID PRN PRN Reason: pain Lisinopril (Zestril) 40 mg PO DAILY [facility] Last Admin: 08/27/18 09:43 Dose: 40 mg Metoprolol Succinate (Toprol Xl) 25 mg PO DAILY [facility] Last Admin: 08/27/18 09:43 Dose: 25 mg Tamsulosin HCl (Flomax) 0.4 mg PO DAILY [facility] Last Admin: 08/27/18 09:43 Dose: 0.4 mg Thiamine HCl (Vitamin B1 Tab) 100 mg PO DAILY [facility] Last Admin: 08/27/18 09:42 Dose: 100 mg - Labs Labs: 08/26/18 07:04 08/27/18 07:49 PT 16.9 SECONDS (9.7-12.2) H 08/25/18 10:56 INR 1.5 08/25/18 10:56 APTT 36 SECONDS (21-34) H 08/25/18 10:56 - Constitutional Appears: Non-toxic - Head Exam Head Exam: ATRAUMATIC - Eye Exam Eye Exam: Normal appearance Pupil Exam: NORMAL ACCOMODATION - ENT Exam ENT Exam: Mucous Membranes Moist - Respiratory Exam Respiratory Exam: NORMAL BREATHING PATTERN - Cardiovascular Exam Cardiovascular Exam: REGULAR RHYTHM - GI/Abdominal Exam GI & Abdominal Exam: Normal Bowel Sounds - Rectal Exam Rectal Exam: NORMAL INSPECTION - Exam Exam: NORMAL INSPECTION - Extremities Exam Extremities Exam: Normal Capillary Refill - Back Exam Back Exam: NORMAL INSPECTION - Neurological Exam Neurological Exam: Alert, Normal Gait, Oriented x3 - Psychiatric Exam Psychiatric exam: Normal Mood - Skin Skin Exam: Normal Color Assessment and Plan - Assessment and Plan (Free Text) Assessment: chf pleural efusion s/p aspiration Plan: cont as ordered
[2018-08-27 15:18] LABS: BF GROSS APPEARANCE SL CLOUDY (CLEAR)
[2018-08-27 15:19] LABS: BODY FLUID MONO/MACROPHAGE 1 % (0-0); BODY FLUID TOTAL COUNT 100 (0-0)
--- NOTE | 2018-08-27 19:15 | PN ---
DATE: 08/27/2018 SUBJECTIVE: The patient denies any chest pain at this time. Shortness of breath has improved. The patient underwent ultrasound-guided right thoracocentesis with removal of 1500 mL of straw-colored fluid. PHYSICAL EXAMINATION: VITAL SIGNS: Blood pressure 124/74, heart rate 65, temperature 97.9, respiration 20. HEENT: Pale conjunctivae. CHEST: Diminished breath sounds over the bases. HEART: S1 and S2 regular. ABDOMEN: Soft. EXTREMITIES: No edema. LABORATORY DATA: Today's SMA-7 is within normal limits except for glucose 127, carbon dioxide of 37, anion gap of 5. Echocardiography study revealed [id number] concentric LVH with severely impaired systolic function with global hypokinesis, moderate to severe mitral insufficiency and mild to moderate pulmonary hypertension. ASSESSMENT: 1. Exacerbation of congestive heart failure. 2. Large right pleural effusion, status post right thoracocentesis. 3. Chronic atrial fibrillation. 4. History of prostatic carcinoma. RECOMMENDATIONS: Continue aspirin 81 mg once a day, Indocin 25 mg t.i.d., Toprol XL 25 mg daily, Zestril 40 mg once a day. Discontinue Lovenox and start Eliquis at 2.5 mg twice a day. Obtain the cardiac catheterization report that was for performed 2 months ago at [facility] according to the patient information. Stewart Bloom MD
[2018-08-28] MEDS: Metoprolol Succinate 25 mg XL Tab PO SCH (09:47)
[2018-08-28] MEDS: Calcium-Vit D 500 mg-200 Units Tab UD PO SCH (09:48)
--- NOTE | 2018-08-28 14:45 | PN ---
DATE: 08/28/2018 SUBJECTIVE: The patient's shortness of breath has improved. He denies any chest pain. PHYSICAL EXAMINATION: VITAL SIGNS: Blood pressure 143/77, heart rate 79, temperature 7.4, respirations 20. HEENT: Normocephalic. CHEST: Absent breath sounds over right base. HEART: S1 and S2 regular. ABDOMEN: Soft. EXTREMITIES: 1+ pitting edema. ASSESSMENT: 1. Exacerbation of congestive heart failure, acute systolic heart failure. 2. Large right pleural effusion, status post right thoracocentesis. 3. Chronic atrial fibrillation. 4. History of prostatic carcinoma. RECOMMENDATIONS: Continue aspirin 81 mg once a day, Eliquis 2.5 mg twice a day, Indocin 25 mg t.i.d., Lasix 40 mg intravenous twice a day, Toprol XL 25 mg daily, Zestril 40 mg once a day, thiamine 100 mg daily. Awaiting the medical records from [facility]. The patient was asked if he has any immediate family members. The patient has two sons who live in [place] and the patient himself when he got , he went to live in [place]. That is apparently when he fathered his two children. The patient stated that he is in charge of his decision making in any case. Stewart Bloom MD
--- NOTE | 2018-08-28 18:17 | CP.PCM.PN ---
Subjective - Date & Time of Evaluation Date of Evaluation: 08/28/18 Time of Evaluation: 18:14 - Subjective Subjective: pt feels less sob no pain thoracosyntesis analysis pending Objective - Vital Signs/Intake and Output Vital Signs (last 24 hours): Temp Pulse Resp BP Pulse Ox 97.5 F L 67 20 123/65 97 08/28/18 15:00 08/28/18 15:00 08/28/18 15:00 08/28/18 15:00 08/28/18 15:00 Intake and Output: 08/28/18 08/28/18 06:59 18:59 Intake Total 500 Output Total 800 Balance -300 - Medications Medications: Current Medications Allopurinol (Zyloprim) 100 mg PO DAILY [facility] Last Admin: 08/28/18 09:47 Dose: 100 mg Apixaban (Eliquis) 2.5 mg PO BID [facility] Last Admin: 08/28/18 09:48 Dose: 2.5 mg Aspirin (Aspirin Chewable) 81 mg PO DAILY [facility] Last Admin: 08/28/18 09:48 Dose: 81 mg Calcium/Vitamin D (Oyster Shell Calcium/Vitamin D 500 Mg-200 Iu) 1 tab PO DAILY [facility] Last Admin: 08/28/18 09:48 Dose: 1 tab Furosemide (Lasix) 40 mg IVP BID [facility] Last Admin: 08/28/18 09:48 Dose: 40 mg Indomethacin (Indocin) 25 mg PO TID PRN PRN Reason: pain Lisinopril (Zestril) 40 mg PO DAILY [facility] Last Admin: 08/28/18 09:47 Dose: 40 mg Metoprolol Succinate (Toprol Xl) 25 mg PO DAILY [facility] Last Admin: 08/28/18 09:47 Dose: 25 mg Tamsulosin HCl (Flomax) 0.4 mg PO DAILY [facility] Last Admin: 08/28/18 09:48 Dose: 0.4 mg Thiamine HCl (Vitamin B1 Tab) 100 mg PO DAILY [facility] Last Admin: 08/28/18 09:48 Dose: 100 mg - Labs Labs: 08/26/18 07:04 08/27/18 07:49 PT 16.9 SECONDS (9.7-12.2) H 08/25/18 10:56 INR 1.5 08/25/18 10:56 APTT 36 SECONDS (21-34) H 08/25/18 10:56 - Constitutional Appears: Non-toxic - Head Exam Head Exam: NORMAL INSPECTION - Eye Exam Eye Exam: Normal appearance Pupil Exam: NORMAL ACCOMODATION - ENT Exam ENT Exam: Normal Exam - Neck Exam Neck Exam: Full ROM - Respiratory Exam Respiratory Exam: Decreased Breath Sounds - Cardiovascular Exam Cardiovascular Exam: REGULAR RHYTHM - GI/Abdominal Exam GI & Abdominal Exam: Soft - Rectal Exam Rectal Exam: Deferred - Extremities Exam Extremities Exam: Normal Inspection - Neurological Exam Neurological Exam: Normal Gait, Oriented x3 - Skin Skin Exam: Normal Color Assessment and Plan - Assessment and Plan (Free Text) Assessment: chf htn pleural efusion s/p thoracosyntesis Plan: cont as per orders
[2018-08-29] MEDS: Calcium-Vit D 500 mg-200 Units Tab UD PO SCH (10:00)
[2018-08-29] MEDS: Metoprolol Succinate 25 mg XL Tab PO SCH (10:00)
--- NOTE | 2018-08-29 11:31 | CP.PCM.PN ---
Subjective - Date & Time of Evaluation Date of Evaluation: 08/29/18 Time of Evaluation: 11:29 - Subjective Subjective: pt feels beter no chest pain no sob Objective - Vital Signs/Intake and Output Vital Signs (last 24 hours): Temp Pulse Resp BP Pulse Ox 98.1 F 78 20 129/75 96 08/29/18 07:00 08/29/18 09:53 08/29/18 07:00 08/29/18 09:56 08/29/18 07:00 Intake and Output: 08/29/18 08/29/18 06:59 18:59 Output Total 600 Balance -600 - Medications Medications: Current Medications Allopurinol (Zyloprim) 100 mg PO DAILY [facility] Last Admin: 08/29/18 09:59 Dose: 100 mg Apixaban (Eliquis) 2.5 mg PO BID [facility] Last Admin: 08/29/18 10:00 Dose: 2.5 mg Aspirin (Aspirin Chewable) 81 mg PO DAILY [facility] Last Admin: 08/29/18 09:59 Dose: 81 mg Calcium/Vitamin D (Oyster Shell Calcium/Vitamin D 500 Mg-200 Iu) 1 tab PO DAILY [facility] Last Admin: 08/29/18 10:00 Dose: 1 tab Docusate Sodium (Colace) 100 mg PO BID [facility] Last Admin: 08/29/18 09:59 Dose: 100 mg Furosemide (Lasix) 40 mg IVP BID [facility] Last Admin: 08/29/18 09:56 Dose: 40 mg Indomethacin (Indocin) 25 mg PO TID PRN PRN Reason: pain Lisinopril (Zestril) 40 mg PO DAILY [facility] Last Admin: 08/29/18 10:00 Dose: 40 mg Metoprolol Succinate (Toprol Xl) 25 mg PO DAILY [facility] Last Admin: 08/29/18 10:00 Dose: 25 mg Tamsulosin HCl (Flomax) 0.4 mg PO DAILY [facility] Last Admin: 08/29/18 10:00 Dose: 0.4 mg Thiamine HCl (Vitamin B1 Tab) 100 mg PO DAILY [facility] Last Admin: 08/29/18 09:59 Dose: 100 mg - Labs Labs: 08/26/18 07:04 08/27/18 07:49 PT 16.9 SECONDS (9.7-12.2) H 08/25/18 10:56 INR 1.5 08/25/18 10:56 APTT 36 SECONDS (21-34) H 08/25/18 10:56 - Constitutional Appears: Non-toxic - Head Exam Head Exam: NORMAL INSPECTION - Eye Exam Eye Exam: Normal appearance Pupil Exam: NORMAL ACCOMODATION - ENT Exam ENT Exam: Normal Exam - Neck Exam Neck Exam: Full ROM - Respiratory Exam Respiratory Exam: NORMAL BREATHING PATTERN - Cardiovascular Exam Cardiovascular Exam: REGULAR RHYTHM - GI/Abdominal Exam GI & Abdominal Exam: Normal Bowel Sounds - Exam External exam: NORMAL EXTERNAL EXAM - Extremities Exam Extremities Exam: Full ROM - Back Exam Back Exam: NORMAL INSPECTION - Neurological Exam Neurological Exam: Alert, Normal Gait, Oriented x3 - Psychiatric Exam Psychiatric exam: Normal Affect - Skin Skin Exam: Normal Color Assessment and Plan - Assessment and Plan (Free Text) Assessment: chf pleural efusion improved Plan: will dc home f/u by his
[2018-08-29 15:09] LABS: AMYLASE PLEURAL FLUID 24 U/L
[2018-08-29 17:09] LABS: GLUCOSE PLEURAL FLUID 157 mg/dL; LDH PLEURAL FLUID 56 U/L; TOTAL PROTEIN PLEURAL FLUID <3.0 g/dL
--- NOTE | 2018-08-29 18:38 | PN ---
DATE: 08/29/2018 SUBJECTIVE: The patient is comfortable. PHYSICAL EXAMINATION VITAL SIGNS: Blood pressure 129/75, heart rate 80, temperature 98.1, respirations 20. HEENT: Pale conjunctivae. CHEST: Absent breath sounds over left base. HEART: S1, S2 regular. ABDOMEN: Soft. EXTREMITIES: 1+ pitting thigh edema. ASSESSMENT: 1. Cardiomyopathy. 2. Chronic atrial fibrillation. 3. Mild anemia. RECOMMENDATIONS: I discussed the case in detail with Dr. Lyn Reynolds, the primary physician with the nurse practitioner and with the patient's original instructor business education, Dr. Denise who works in [place] with the patient seen as an outpatient under the [facility] Surveying Or Spatial Science Technician. I spoke to Dr. Denise phone number of [phone]. According to the records that Dr. Denise has, the patient underwent cardiac catheterization in early March, which revealed completely unremarkable chronic atrial fibrillation and was due to have an ICD implanted in early August. Plans for discharge were canceled and I did request a consult with Dr. Saul, telecommunications technician to evaluate the patient for ICD placement prior to discharge. In the meantime, we discussed the case with the patient's friend who practically takes care of him, his transportation and explained to him the plan in detail. The friend's phone number is [phone]. Stewart Bloom MD
[2018-08-30] MEDS: Calcium-Vit D 500 mg-200 Units Tab UD PO SCH (10:15)
[2018-08-30] MEDS: Metoprolol Succinate 25 mg XL Tab PO SCH (10:15)
--- NOTE | 2018-08-30 11:51 | CP.PCM.PN ---
Subjective - Date & Time of Evaluation Date of Evaluation: 08/30/18 Time of Evaluation: 11:49 - Subjective Subjective: case discused with dr romero who conacted his previous cardiology found he need icd dr gregory was called Objective - Vital Signs/Intake and Output Vital Signs (last 24 hours): Temp Pulse Resp BP Pulse Ox 97.4 F L 72 20 128/78 97 08/30/18 08:40 08/30/18 08:40 08/30/18 08:40 08/30/18 10:15 08/30/18 08:40 Intake and Output: 08/30/18 08/30/18 06:59 18:59 Output Total 200 Balance -200 - Medications Medications: Current Medications Allopurinol (Zyloprim) 100 mg PO DAILY [facility] Last Admin: 08/30/18 10:16 Dose: 100 mg Apixaban (Eliquis) 2.5 mg PO BID [facility] Last Admin: 08/30/18 10:14 Dose: 2.5 mg Aspirin (Aspirin Chewable) 81 mg PO DAILY [facility] Last Admin: 08/30/18 10:14 Dose: 81 mg Calcium/Vitamin D (Oyster Shell Calcium/Vitamin D 500 Mg-200 Iu) 1 tab PO DAILY [facility] Last Admin: 08/30/18 10:15 Dose: 1 tab Docusate Sodium (Colace) 100 mg PO BID [facility] Last Admin: 08/30/18 10:14 Dose: 100 mg Furosemide (Lasix) 40 mg IVP BID [facility] Last Admin: 08/30/18 10:15 Dose: 40 mg Indomethacin (Indocin) 25 mg PO TID PRN PRN Reason: pain Lisinopril (Zestril) 40 mg PO DAILY [facility] Last Admin: 08/30/18 10:16 Dose: 40 mg Metoprolol Succinate (Toprol Xl) 25 mg PO DAILY [facility] Last Admin: 08/30/18 10:15 Dose: 25 mg Tamsulosin HCl (Flomax) 0.4 mg PO DAILY [facility] Last Admin: 08/30/18 10:15 Dose: 0.4 mg Thiamine HCl (Vitamin B1 Tab) 100 mg PO DAILY [facility] Last Admin: 08/30/18 10:16 Dose: 100 mg - Labs Labs: 08/26/18 07:04 08/27/18 07:49 PT 16.9 SECONDS (9.7-12.2) H 08/25/18 10:56 INR 1.5 08/25/18 10:56 APTT 36 SECONDS (21-34) H 08/25/18 10:56 - Constitutional Appears: Non-toxic - Head Exam Head Exam: ATRAUMATIC - Eye Exam Eye Exam: Normal appearance Pupil Exam: NORMAL ACCOMODATION - ENT Exam ENT Exam: Mucous Membranes Moist - Neck Exam Neck Exam: Normal Inspection - Respiratory Exam Respiratory Exam: Decreased Breath Sounds - Cardiovascular Exam Cardiovascular Exam: REGULAR RHYTHM - GI/Abdominal Exam GI & Abdominal Exam: Normal Bowel Sounds - Extremities Exam Extremities Exam: Full ROM, Normal Inspection - Neurological Exam Neurological Exam: Awake, Oriented x3 - Psychiatric Exam Psychiatric exam: Normal Mood - Skin Skin Exam: Normal Color Assessment and Plan - Assessment and Plan (Free Text) Assessment: chf Plan: need icd cont as ordered
[2018-08-30 13:45] LABS: BASO # 0.1 K/uL (0.0-0.2); BASO % 1.5 % (0.0-2.0); EOS # 0.2 K/uL (0.0-0.7); HEMOGLOBIN 11.4 g/dL (12.0-18.0); LYMPH # 1.4 K/uL (1.0-4.3); LYMPH % 25.2 % (20.0-40.0); MEAN CELL VOLUME 88.8 fL (80.0-94.0); MEAN CORPUSCULAR HEMOGLOBIN 28.3 pg (27.0-31.0); MEAN CORPUSCULAR HGB CONC 31.8 g/dL (33.0-37.0); MEAN PLATELET VOLUME 8.9 fL (7.2-11.7); MONO # 0.8 K/uL (0.0-0.8); MONO % 15.6 % (0.0-10.0); NEUT # 2.9 K/uL (1.8-7.0); NEUT % 53.7 % (50.0-75.0); NRBC % 0.1 % (0.0-2.0); RBC 4.04 Mil/uL (4.40-5.90); RED CELL DISTRIBUTION WIDTH 16.7 % (11.5-14.5); WHITE BLOOD COUNT 5.4 K/uL (4.8-10.8)
[2018-08-30 14:03] LABS: BLOOD UREA NITROGEN 21 mg/dL (9-20); CALCIUM 8.8 mg/dl (8.6-10.4); GFR NON-AFRICAN AMERICAN > 60
--- NOTE | 2018-08-30 18:11 | PN ---
DATE: 08/30/2018 SUBJECTIVE: The patient denies chest pain. The shortness of breath has improved. His appetite improved. PHYSICAL EXAMINATION: VITAL SIGNS: Blood pressure 128/78, heart rate 72, temperature 97.4, respirations 20. HEENT: Normocephalic. CHEST: Absent breath sounds over the right base. HEART: S1 and S2, regular. ABDOMEN: Soft. EXTREMITIES: 1+ pitting edema. ASSESSMENT: 1. Ischemic cardiomyopathy. 2. Chronic atrial fibrillation. 3. Status post right thoracocentesis for a large pleural effusion. 4. Mild anemia. RECOMMENDATIONS: Continue current aspirin 81 mg once a day, Eliquis 2.5 mg once a day, Indocin 25 mg t.i.d., Toprol-XL 25 mg once a day, thiamine 100 mg once a day, Zestril 40 mg once a day, Zyloprim 100 mg daily. No cardiac catheterization report has been faxed to me as per my earlier request from Dr. Turpin, and I will request it to be obtained from [facility] both by phone and fax request. The phone number is [phone], and the fax is [phone]. The case was discussed with primary physician, Dr. Lyn Reynolds, and the patient will be evaluated by , the harness brusher. Stewart Bloom MD
[2018-08-31] MEDS: Metoprolol Succinate 25 mg XL Tab PO SCH (09:34)
[2018-08-31] MEDS: Calcium-Vit D 500 mg-200 Units Tab UD PO SCH (09:35)
--- NOTE | 2018-08-31 10:07 | CP.PCM.PN ---
Subjective - Date & Time of Evaluation Date of Evaluation: 08/31/18 Time of Evaluation: 10:04 - Subjective Subjective: pt less sob no chest pain pleural fluid microneg still await dr gregory for icd evaluation Objective - Vital Signs/Intake and Output Vital Signs (last 24 hours): Temp Pulse Resp BP Pulse Ox 97.6 F 70 20 135/77 95 08/31/18 09:27 08/31/18 09:27 08/31/18 09:27 08/31/18 09:42 08/31/18 09:27 Intake and Output: 08/31/18 08/31/18 06:59 18:59 Intake Total 240 Output Total 280 Balance -40 - Medications Medications: Current Medications Allopurinol (Zyloprim) 100 mg PO DAILY [facility] Last Admin: 08/31/18 09:35 Dose: 100 mg Apixaban (Eliquis) 2.5 mg PO BID [facility] Last Admin: 08/31/18 09:42 Dose: 2.5 mg Aspirin (Aspirin Chewable) 81 mg PO DAILY [facility] Last Admin: 08/31/18 09:35 Dose: 81 mg Calcium/Vitamin D (Oyster Shell Calcium/Vitamin D 500 Mg-200 Iu) 1 tab PO DAILY [facility] Last Admin: 08/31/18 09:35 Dose: 1 tab Docusate Sodium (Colace) 100 mg PO BID [facility] Last Admin: 08/31/18 09:34 Dose: 100 mg Furosemide (Lasix) 40 mg IVP BID [facility] Last Admin: 08/31/18 09:42 Dose: 40 mg Indomethacin (Indocin) 25 mg PO TID PRN PRN Reason: pain Lisinopril (Zestril) 40 mg PO DAILY [facility] Last Admin: 08/31/18 09:34 Dose: 40 mg Metoprolol Succinate (Toprol Xl) 25 mg PO DAILY [facility] Last Admin: 08/31/18 09:34 Dose: 25 mg Tamsulosin HCl (Flomax) 0.4 mg PO DAILY [facility] Last Admin: 08/31/18 09:35 Dose: 0.4 mg Thiamine HCl (Vitamin B1 Tab) 100 mg PO DAILY [facility] Last Admin: 08/31/18 09:35 Dose: 100 mg - Labs Labs: 08/30/18 13:37 08/30/18 13:37 PT 16.9 SECONDS (9.7-12.2) H 08/25/18 10:56 INR 1.5 08/25/18 10:56 APTT 36 SECONDS (21-34) H 08/25/18 10:56 - Constitutional Appears: Non-toxic - Head Exam Head Exam: NORMAL INSPECTION - Eye Exam Eye Exam: Normal appearance Pupil Exam: NORMAL ACCOMODATION - ENT Exam ENT Exam: Mucous Membranes Moist - Neck Exam Neck Exam: Normal Inspection - Respiratory Exam Respiratory Exam: NORMAL BREATHING PATTERN - Cardiovascular Exam Cardiovascular Exam: REGULAR RHYTHM, +S1, +S2, +S4 - GI/Abdominal Exam GI & Abdominal Exam: Normal Bowel Sounds - Extremities Exam Extremities Exam: Normal Capillary Refill - Back Exam Back Exam: NORMAL INSPECTION - Neurological Exam Neurological Exam: Alert, Awake, Oriented x3 - Psychiatric Exam Psychiatric exam: Normal Affect - Skin Skin Exam: Normal Color Assessment and Plan - Assessment and Plan (Free Text) Assessment: chf generalised weekness Plan: will start pt await icd
--- NOTE | 2018-08-31 20:38 | PN ---
DATE: 08/31/2018 SUBJECTIVE: The patient denies dizziness or shortness of breath at this time. He ambulated briefly. PHYSICAL EXAMINATION: VITAL SIGNS: Blood pressure 135/77, heart rate 72, temperature 98.6, respirations 20. HEENT: Normocephalic. CHEST: Diminished breath sounds over the right base. HEART: S1, S2 regular. ABDOMEN: Soft. EXTREMITIES: 1+ pedal edema. ASSESSMENT: 1. Nonischemic cardiomyopathy. 2. Chronic atrial fibrillation. 3. Hyperglycemia, consider diabetes mellitus. 4. Right thoracocentesis, we removed 1500 mL of pleural fluid. RECOMMENDATIONS: Continue aspirin 81 mg once a day, Eliquis 2.5 mg twice a day, Indocin 25 mg b.i.d., Lasix 20 mg intravenously twice a day, Zestril at 40 mg once a day, thiamine 100 mg once a day, allopurinol 100 mg daily, awaiting cardiac catheterization report for [facility] and awaiting EP evaluation by Dr. Suresh. Stewart Bloom MD
[2018-09-01] MEDS: Metoprolol Succinate 25 mg XL Tab PO SCH (09:28)
[2018-09-01] MEDS: Calcium-Vit D 500 mg-200 Units Tab UD PO SCH (09:29)
--- NOTE | 2018-09-01 15:47 | CP.PCM.PN ---
Subjective - Date & Time of Evaluation Date of Evaluation: 09/01/18 Time of Evaluation: 15:45 - Subjective Subjective: pt started waking with pt less sob awaite ep for icd insersion Objective - Vital Signs/Intake and Output Vital Signs (last 24 hours): Temp Pulse Resp BP Pulse Ox 98.4 F 63 20 137/84 96 09/01/18 07:40 09/01/18 07:40 09/01/18 07:40 09/01/18 09:29 09/01/18 07:40 Intake and Output: 09/01/18 09/01/18 06:59 18:59 Output Total 1000 Balance -1000 - Medications Medications: Current Medications Allopurinol (Zyloprim) 100 mg PO DAILY [facility] Last Admin: 09/01/18 09:28 Dose: 100 mg Apixaban (Eliquis) 2.5 mg PO BID [facility] Last Admin: 09/01/18 09:28 Dose: 2.5 mg Aspirin (Aspirin Chewable) 81 mg PO DAILY [facility] Last Admin: 09/01/18 09:29 Dose: 81 mg Calcium/Vitamin D (Oyster Shell Calcium/Vitamin D 500 Mg-200 Iu) 1 tab PO DAILY [facility] Last Admin: 09/01/18 09:29 Dose: 1 tab Docusate Sodium (Colace) 100 mg PO BID [facility] Last Admin: 09/01/18 09:29 Dose: 100 mg Furosemide (Lasix) 40 mg IVP BID [facility] Last Admin: 09/01/18 09:29 Dose: 40 mg Indomethacin (Indocin) 25 mg PO TID PRN PRN Reason: pain Lisinopril (Zestril) 40 mg PO DAILY [facility] Last Admin: 09/01/18 09:29 Dose: 40 mg Metoprolol Succinate (Toprol Xl) 25 mg PO DAILY [facility] Last Admin: 09/01/18 09:28 Dose: 25 mg Tamsulosin HCl (Flomax) 0.4 mg PO DAILY [facility] Last Admin: 09/01/18 09:28 Dose: 0.4 mg Thiamine HCl (Vitamin B1 Tab) 100 mg PO DAILY [facility] Last Admin: 09/01/18 09:29 Dose: 100 mg - Labs Labs: 08/30/18 13:37 08/30/18 13:37 PT 16.9 SECONDS (9.7-12.2) H 08/25/18 10:56 INR 1.5 08/25/18 10:56 APTT 36 SECONDS (21-34) H 08/25/18 10:56 - Constitutional Appears: Non-toxic - Head Exam Head Exam: ATRAUMATIC - Eye Exam Eye Exam: Normal appearance Pupil Exam: NORMAL ACCOMODATION - ENT Exam ENT Exam: Mucous Membranes Moist - Neck Exam Neck Exam: Full ROM - Respiratory Exam Respiratory Exam: Clear to Ausculation Bilateral - Cardiovascular Exam Cardiovascular Exam: REGULAR RHYTHM - GI/Abdominal Exam GI & Abdominal Exam: Normal Bowel Sounds - Rectal Exam Rectal Exam: NORMAL INSPECTION - Exam External exam: NORMAL EXTERNAL EXAM - Extremities Exam Extremities Exam: Normal Inspection - Neurological Exam Neurological Exam: Normal Gait - Psychiatric Exam Psychiatric exam: Normal Mood - Skin Skin Exam: Normal Color Assessment and Plan - Assessment and Plan (Free Text) Assessment: chf pleural efusion dm need icd Plan: as oredered
--- NOTE | 2018-09-01 17:32 | PN ---
DATE: 09/01/2018 SUBJECTIVE: The patient denies any dizziness and shortness of breath has improved. PHYSICAL EXAMINATION: VITAL SIGNS: Blood pressure 136/81, heart rate 63, temperature 98.4, respirations 20. HEENT: Normocephalic. CHEST: Absent breath sounds over the left base. HEART: S1 and S2 regular. ABDOMEN: Soft. EXTREMITIES: 1+ pitting edema. ASSESSMENT: 1. Nonischemic cardiomyopathy. 2. Status post left thoracocentesis for significant left pleural effusion. 3. Mild anemia. 4. Chronic atrial fibrillation. RECOMMENDATIONS: Continue aspirin 81 mg once a day, Eliquis 2.5 mg twice a day, Lasix 20 mg intravenously twice a day, Toprol-XL 25 mg once a day, thiamine 100 mg once a day, Zestril at 40 mg once a day, allopurinol 100 mg daily. I have discussed the case with floor attendant Dr. Saul who will come and evaluate the patient today for ICD placement. Stewart Bloom MD
[2018-09-02] MEDS: Metoprolol Succinate 25 mg XL Tab PO SCH (09:27)
[2018-09-02] MEDS: Calcium-Vit D 500 mg-200 Units Tab UD PO SCH (09:27)
--- NOTE | 2018-09-02 10:55 | CP.PCM.PN ---
Subjective - Date & Time of Evaluation Date of Evaluation: 09/02/18 Time of Evaluation: 10:52 - Subjective Subjective: less sob no chest pain will have icd today Objective - Vital Signs/Intake and Output Vital Signs (last 24 hours): Temp Pulse Resp BP Pulse Ox 97.5 F L 75 20 127/79 97 09/02/18 08:44 09/02/18 08:44 09/02/18 08:44 09/02/18 09:28 09/02/18 08:44 - Medications Medications: Current Medications Allopurinol (Zyloprim) 100 mg PO DAILY [facility] Last Admin: 09/02/18 09:27 Dose: 100 mg Apixaban (Eliquis) 2.5 mg PO BID [facility] Last Admin: 09/02/18 09:27 Dose: 2.5 mg Aspirin (Aspirin Chewable) 81 mg PO DAILY [facility] Last Admin: 09/02/18 09:27 Dose: 81 mg Calcium/Vitamin D (Oyster Shell Calcium/Vitamin D 500 Mg-200 Iu) 1 tab PO DAILY [facility] Last Admin: 09/02/18 09:27 Dose: 1 tab Docusate Sodium (Colace) 100 mg PO BID [facility] Last Admin: 09/02/18 09:26 Dose: 100 mg Furosemide (Lasix) 40 mg IVP BID [facility] Last Admin: 09/02/18 09:28 Dose: 40 mg Indomethacin (Indocin) 25 mg PO TID PRN PRN Reason: pain Lisinopril (Zestril) 40 mg PO DAILY [facility] Last Admin: 09/02/18 09:27 Dose: 40 mg Metoprolol Succinate (Toprol Xl) 25 mg PO DAILY [facility] Last Admin: 09/01/18 09:28 Dose: 25 mg Tamsulosin HCl (Flomax) 0.4 mg PO DAILY [facility] Last Admin: 09/02/18 09:27 Dose: 0.4 mg Thiamine HCl (Vitamin B1 Tab) 100 mg PO DAILY [facility] Last Admin: 09/02/18 09:27 Dose: 100 mg - Labs Labs: 08/30/18 13:37 08/30/18 13:37 PT 16.9 SECONDS (9.7-12.2) H 08/25/18 10:56 INR 1.5 08/25/18 10:56 APTT 36 SECONDS (21-34) H 08/25/18 10:56 - Constitutional Appears: Non-toxic - Head Exam Head Exam: ATRAUMATIC - Eye Exam Eye Exam: Normal appearance Pupil Exam: NORMAL ACCOMODATION - ENT Exam ENT Exam: Normal Exam - Neck Exam Neck Exam: Full ROM - Respiratory Exam Respiratory Exam: Decreased Breath Sounds, NORMAL BREATHING PATTERN - Cardiovascular Exam Cardiovascular Exam: REGULAR RHYTHM - GI/Abdominal Exam GI & Abdominal Exam: Normal Bowel Sounds - Rectal Exam Rectal Exam: NORMAL INSPECTION - Exam Exam: NORMAL INSPECTION - Extremities Exam Extremities Exam: Full ROM - Back Exam Back Exam: NORMAL INSPECTION - Neurological Exam Neurological Exam: Alert, Awake - Psychiatric Exam Psychiatric exam: Normal Mood - Skin Skin Exam: Normal Color Assessment and Plan - Assessment and Plan (Free Text) Assessment: chf pleural efusion for icd today
--- NOTE | 2018-09-02 16:01 | CP.PCM.CON ---
History of Present Illness - History of Present Illness History of Present Illness: CARDIAC-ELECTROPHYSIOLOGY CONSULT re: sudden prophylaxis Chart imaging telemetry were reviewed Patient interviewed examined Mr. Lim was admitted with shortness of breath mild heart failure syndrome and palpitations Denied syncope diaphoresis Past medical history: Systemic hypertension Atrial fibrillation on anticoagulation Cardiomyopathy: since a year; was scheduled for an ICD implant in March 2018; logistics precluded it per patient Prostate malignancy Gout Medications: reviewed Denied smokling alcohol or substance abuse Follows up at the [facility] clinic in [place] Exam: Lying flat in bed No distress Normal venous pressures Clear lungs LS3 irregular rhythm EKG: atrial fibrillation Echo: Reviewed Labs: noted Mr Lim has severe dilated non ischemic cardiomyopathy; she is a candidate for sudden prophylaxis Discussed with patient at length procedures risks and options; He agreed and assemnts NPO post breakfast Hold gina GRAHAM nursing staff SANTOS aburto Past Patient History - Infectious Disease Hx of Infectious Diseases: None - Past Medical History & Family History Past Medical History?: Yes - Past Social History Smoking Status: Never Smoked - CARDIAC Hx Hypertension: Yes - PULMONARY Hx Respiratory Disorders: No - NEUROLOGICAL Hx Neurological Disorder: No - HEENT Hx HEENT Problems: No - RENAL Hx Chronic Kidney Disease: No - ENDOCRINE/METABOLIC Hx Endocrine Disorders: No - HEMATOLOGICAL/ONCOLOGICAL Hx Blood Disorders: No - INTEGUMENTARY Hx Dermatological Problems: No - MUSCULOSKELETAL/RHEUMATOLOGICAL Hx Arthritis: Yes - GASTROINTESTINAL Hx Gastrointestinal Disorders: No - GENITOURINARY/GYNECOLOGICAL Hx Prostate Cancer: Yes - PSYCHIATRIC Hx Substance Use: No - SURGICAL HISTORY Hx Surgeries: Yes Hx Orthopedic Surgery: Yes - ANESTHESIA Hx Anesthesia: Yes Hx Anesthesia Reactions: No Meds Allergies/Adverse Reactions: Allergies Allergy/AdvReac Type Severity Reaction Status Date / Time No Known Allergies Allergy Verified 08/25/18 10:22 - Medications Medications: Current Medications Allopurinol (Zyloprim) 100 mg PO DAILY [facility] Last Admin: 09/02/18 09:27 Dose: 100 mg Apixaban (Eliquis) 2.5 mg PO BID [facility] Last Admin: 09/02/18 09:27 Dose: 2.5 mg Aspirin (Aspirin Chewable) 81 mg PO DAILY [facility] Last Admin: 09/02/18 09:27 Dose: 81 mg Calcium/Vitamin D (Oyster Shell Calcium/Vitamin D 500 Mg-200 Iu) 1 tab PO DAILY [facility] Last Admin: 09/02/18 09:27 Dose: 1 tab Docusate Sodium (Colace) 100 mg PO BID [facility] Last Admin: 09/02/18 09:26 Dose: 100 mg Furosemide (Lasix) 40 mg IVP BID [facility] Last Admin: 09/02/18 09:28 Dose: 40 mg Indomethacin (Indocin) 25 mg PO TID PRN PRN Reason: pain Lisinopril (Zestril) 40 mg PO DAILY [facility] Last Admin: 09/02/18 09:27 Dose: 40 mg Metoprolol Succinate (Toprol Xl) 25 mg PO DAILY [facility] Last Admin: 09/02/18 09:27 Dose: 25 mg Tamsulosin HCl (Flomax) 0.4 mg PO DAILY [facility] Last Admin: 09/02/18 09:27 Dose: 0.4 mg Thiamine HCl (Vitamin B1 Tab) 100 mg PO DAILY [facility] Last Admin: 09/02/18 09:27 Dose: 100 mg Results - Vital Signs Recent Vital Signs: Last Vital Signs Temp 97.5 F L 09/02/18 08:44 Pulse 75 09/02/18 08:44 Resp 20 09/02/18 08:44 BP 127/79 09/02/18 09:28 Pulse Ox 97 09/02/18 08:44 - Labs Result Diagrams: 08/30/18 13:37 08/30/18 13:37
--- NOTE | 2018-09-02 17:57 | PN ---
DATE: 09/02/2018 SUBJECTIVE: The patient denies any chest pain or shortness of breath. PHYSICAL EXAMINATION: VITAL SIGNS: Blood pressure 127/79, heart rate 55, temperature 97.5, and respirations 20. HEENT: Normocephalic. CHEST: Absent breath sounds over the right base. HEART: S1 and S2, regular. ABDOMEN: Soft. EXTREMITIES: 1+ pitting edema. ASSESSMENT: 1. Nonischemic cardiomyopathy. 2. Chronic atrial fibrillation. 3. Mild anemia. 4. Status post right thoracocentesis for significant right pleural effusion. As a note, it was mentioned by mistake in my yesterday's note that the thoracocentesis and effusion were left, but this was an error on my part. RECOMMENDATIONS: Continue aspirin 81 mg once a day, Eliquis 2.5 mg twice a day, Indocin 25 mg once a day, Lasix 20 mg intravenously twice a day, Toprol-XL 25 mg once a day, thiamine 100 mg once a day, Zestril at 40 mg once a day. Case was discussed with Dr. Saul, the metal shaping machine operator and with the primary physician, Dr. Lyn Reynolds, and the plan is to transfer the patient to Center today for ICD placement. Stewart Bloom MD
[2018-09-03 07:39] LABS: BASO # 0.1 K/uL (0.0-0.2); EOS # 0.1 K/uL (0.0-0.7); EOS % 2.7 % (0.0-4.0); HEMOGLOBIN 10.6 g/dL (12.0-18.0); LYMPH # 1.1 K/uL (1.0-4.3); LYMPH % 21.7 % (20.0-40.0); MEAN CELL VOLUME 87.8 fL (80.0-94.0); MEAN CORPUSCULAR HEMOGLOBIN 28.3 pg (27.0-31.0); MEAN CORPUSCULAR HGB CONC 32.2 g/dL (33.0-37.0); MEAN PLATELET VOLUME 8.7 fL (7.2-11.7); MONO # 0.6 K/uL (0.0-0.8); MONO % 10.9 % (0.0-10.0); NEUT # 3.3 K/uL (1.8-7.0); NEUT % 63.7 % (50.0-75.0); NRBC % 0.1 % (0.0-2.0); RBC 3.74 Mil/uL (4.40-5.90); RED CELL DISTRIBUTION WIDTH 16.5 % (11.5-14.5); WHITE BLOOD COUNT 5.1 K/uL (4.8-10.8)
[2018-09-03 07:48] LABS: IRON 29 ug/dL (49-181)
[2018-09-03 08:01] LABS: % IRON SATURATION 13 (20-55); TOTAL IRON BINDING CAPACITY 215 ug/dL (250-450)
[2018-09-03 09:00] LABS: FOLATE 15.1 ng/mL
[2018-09-03] MEDS: Metoprolol Succinate 25 mg XL Tab PO SCH (10:03)
[2018-09-03] MEDS: Calcium-Vit D 500 mg-200 Units Tab UD PO SCH (10:04)
--- NOTE | 2018-09-03 10:59 | CP.PCM.PN ---
Subjective - Date & Time of Evaluation Date of Evaluation: 09/03/18 Time of Evaluation: 10:56 - Subjective Subjective: pt feels ok no chest pain repoted having blood in stool iron low will have endoscopy tody Objective - Vital Signs/Intake and Output Vital Signs (last 24 hours): Temp Pulse Resp BP Pulse Ox 97.6 F 70 20 149/83 99 09/02/18 23:10 09/03/18 01:00 09/02/18 23:10 09/03/18 10:07 09/02/18 23:10 - Medications Medications: Current Medications Allopurinol (Zyloprim) 100 mg PO DAILY [facility] Last Admin: 09/03/18 09:42 Dose: 100 mg Apixaban (Eliquis) 2.5 mg PO BID [facility] Last Admin: 09/02/18 09:27 Dose: 2.5 mg Aspirin (Aspirin Chewable) 81 mg PO DAILY [facility] Last Admin: 09/02/18 09:27 Dose: 81 mg Calcium/Vitamin D (Oyster Shell Calcium/Vitamin D 500 Mg-200 Iu) 1 tab PO DAILY [facility] Last Admin: 09/03/18 10:04 Dose: 1 tab Docusate Sodium (Colace) 100 mg PO BID [facility] Last Admin: 09/03/18 09:46 Dose: 100 mg Furosemide (Lasix) 40 mg IVP BID [facility] Last Admin: 09/03/18 10:07 Dose: 40 mg Indomethacin (Indocin) 25 mg PO TID PRN PRN Reason: pain Last Admin: 09/03/18 07:09 Dose: 25 mg Lisinopril (Zestril) 40 mg PO DAILY [facility] Last Admin: 09/03/18 10:03 Dose: 40 mg Metoprolol Succinate (Toprol Xl) 25 mg PO DAILY [facility] Last Admin: 09/03/18 10:03 Dose: 25 mg Pantoprazole Sodium (Protonix Inj) 40 mg IVP Q12H [facility] Last Admin: 09/03/18 09:43 Dose: 40 mg Tamsulosin HCl (Flomax) 0.4 mg PO DAILY [facility] Last Admin: 09/03/18 09:42 Dose: 0.4 mg Thiamine HCl (Vitamin B1 Tab) 100 mg PO DAILY [facility] Last Admin: 09/03/18 09:42 Dose: 100 mg - Labs Labs: 09/03/18 06:52 08/30/18 13:37 PT 16.9 SECONDS (9.7-12.2) H 08/25/18 10:56 INR 1.5 08/25/18 10:56 APTT 36 SECONDS (21-34) H 08/25/18 10:56 - Constitutional Appears: Non-toxic - Head Exam Head Exam: ATRAUMATIC - Eye Exam Eye Exam: Normal appearance Pupil Exam: NORMAL ACCOMODATION - ENT Exam ENT Exam: Normal Exam - Neck Exam Neck Exam: Full ROM - Respiratory Exam Respiratory Exam: Clear to Ausculation Bilateral - Cardiovascular Exam Cardiovascular Exam: REGULAR RHYTHM - Exam Exam: NORMAL INSPECTION - Extremities Exam Extremities Exam: Normal Capillary Refill - Back Exam Back Exam: NORMAL INSPECTION - Neurological Exam Neurological Exam: Alert, Awake, Normal Gait, Oriented x3 - Psychiatric Exam Psychiatric exam: Normal Affect - Skin Skin Exam: Normal Color Assessment and Plan - Assessment and Plan (Free Text) Assessment: rectal bleeding s/p icd insertion vchf iron defeciency Plan: endoscopy today and plan will discuss with gi and cardiology mario been in hold
[2018-09-03] MEDS ORDERED: Lactated Ringer's 500 ML IV ONE ×2 (13:34)
--- NOTE | 2018-09-03 13:57 | RAD ---
Date of service: 09/03/2018 PROCEDURE: CHEST RADIOGRAPH, 1 VIEW HISTORY: s/p AICD lead placement COMPARISON: 08/25/2018. FINDINGS: LUNGS: The lungs are well inflated and clear. Is no focal consolidation. PLEURA: Suspect small effusions. No pneumothorax. CARDIOVASCULAR: There is moderate cardiomegaly. There are aortic atherosclerotic calcifications present. There is interval placement of a left-sided AICD. OSSEOUS STRUCTURES: Within normal limits for the patient's age. VISUALIZED UPPER ABDOMEN: Normal. OTHER FINDINGS: None. IMPRESSION: No active pulmonary disease. Moderate cardiomegaly. Suspect small effusions. Interval placement of left-sided AICD.
[2018-09-03] MEDS ORDERED: Midazolam 2 MG/2 ML VIAL ONE (14:38)
[2018-09-03] MEDS ORDERED: Propofol 10 mg/ml Inj (20 ML) ONE (14:38)
--- NOTE | 2018-09-03 16:12 | CT ---
Date of service: 09/03/2018 CT chest without IV contrast Indication: Rule out free air Technique: Contiguous axial images were obtained through the chest without intravenous contrast enhancement. Sagittal and coronal reconstructions were generated and reviewed. This CT exam was performed using 1 or more of the following dose reduction techniques: Automated exposure control, adjustment of the MAA and/or kV according to patient size, and/or use of iterative reconstruction technique. Radiation dose (DLP): 416.92 MGy-cm. Comparison: Chest x-ray performed 09/03/18, CT abdomen and pelvis with contrast performed 08/26/18 Findings: Visualized portions of the inferior thyroid gland appear heterogeneous. The unenhanced mediastinal and hilar vascular structures appear grossly unremarkable. Single lead left-sided AICD. Streak artifact limits evaluation of the surrounding soft tissues, however there is evidence of subcutaneous air, soft tissue swelling, and suspected hematoma with asymmetrically enlarged soft tissues on the left as compared to the right. Cardiomegaly. Atherosclerotic calcifications of the aorta. Moderate right greater than left pleural effusions and associated compressive consolidations. No definite pneumothorax. Limited visualization of the noncontrast upper abdomen demonstrates small ascites. Degenerative changes of the spine. Impression: Single lead left-sided AICD. Streak artifact limits evaluation of the surrounding soft tissues, however there is evidence of subcutaneous air, soft tissue swelling, and suspected hematoma with asymmetrically enlarged soft tissues on the left as compared to the right. Correlate with physical exam. Cardiomegaly. Moderate right greater than left pleural effusions and associated compressive consolidations. Small ascites noted within the limited visualized noncontrast upper abdomen. Heterogeneous appearance of the included inferior thyroid gland.
[2018-09-03 16:27] VITALS: RESP 20
--- NOTE | 2018-09-03 22:42 | PN ---
DATE: 09/03/2018 SUBJECTIVE: The patient has slight oozing from the dressing of the ICD which was implanted yesterday. The patient underwent this morning an EGD and findings were esophageal plaques consistent with candidiasis. Cytology was obtained. Low grade narrowing, Schatzki's ring dilated. Gastritis biopsied. Chest CT scan performed today. The findings are single-sided AICD, straight artifact limit evaluation of the surrounding soft tissue; however, there is evidence of subcutaneous air, soft tissue swelling and suspected hematoma with asymmetrically enlarged soft tissue compared to the right. Moderate right great than left pleural effusion and associated compressive consolidation. Small ascites. Heterogeneous appearance of the inferior thyroid gland. ASSESSMENT: 1. Cardiomyopathy, status post implantable cardioverter-defibrillator placement. 2. Consider subcutaneous hematoma relating to the implantable cardioverter-defibrillator placement. 3. Esophageal plaques. 4. Gastritis. 5. Low-grade narrowing, Schatzki's ring. 6. Bilateral pleural effusion right greater than the left, status post right thoracentesis. RECOMMENDATIONS: I did apply pressure over the ICD site which I maintained with a large IV fluid bag. Discussed with Dr. Saul, who will come and evaluate the patient today this evening. In the meantime, both aspirin and Eliquis are on hold. Continue Lasix 40 mg intravenously twice a day, Indocin 25 mg t.i.d., Toprol-XL 25 mg once a day, and Zestril 40 mg once a day. Stewart Bloom MD
[2018-09-04 07:52] LABS: BASO # 0.1 K/uL (0.0-0.2); EOS # 0.2 K/uL (0.0-0.7); EOS % 3.8 % (0.0-4.0); HEMOGLOBIN 10.2 g/dL (12.0-18.0); LYMPH # 1.1 K/uL (1.0-4.3); LYMPH % 22.5 % (20.0-40.0); MEAN CELL VOLUME 87.5 fL (80.0-94.0); MEAN CORPUSCULAR HEMOGLOBIN 28.2 pg (27.0-31.0); MEAN CORPUSCULAR HGB CONC 32.2 g/dL (33.0-37.0); MEAN PLATELET VOLUME 8.7 fL (7.2-11.7); MONO # 0.6 K/uL (0.0-0.8); MONO % 11.7 % (0.0-10.0); NEUT # 3.1 K/uL (1.8-7.0); NRBC % 0.1 % (0.0-2.0); RBC 3.61 Mil/uL (4.40-5.90); RED CELL DISTRIBUTION WIDTH 16.4 % (11.5-14.5); WHITE BLOOD COUNT 5.1 K/uL (4.8-10.8)
[2018-09-04 08:01] LABS: BLOOD UREA NITROGEN 21 mg/dL (9-20); CALCIUM 8.9 mg/dl (8.6-10.4); GFR NON-AFRICAN AMERICAN > 60
[2018-09-04] MEDS: Calcium-Vit D 500 mg-200 Units Tab UD PO SCH (09:37)
[2018-09-04] MEDS: Metoprolol Succinate 25 mg XL Tab PO SCH (09:39)
--- NOTE | 2018-09-04 14:02 | PN ---
DATE: 09/04/2018 SUBJECTIVE: No reported bleeding from the ICD site. The patient denies any chest pain or dizziness. PHYSICAL EXAMINATION: VITAL SIGNS: Blood pressure 115/68, heart rate 80, temperature 98.1, respiration 20. HEENT: Pale conjunctivae. CHEST: Diminished breath sounds over the right base. HEART: S1 and S2 regular. ABDOMEN: Soft. EXTREMITIES: 1+ pitting edema. LABORATORY DATA: Hemoglobin and hematocrit 10.2 and 31.6. White count and platelet count are within normal limits. Today's SMA-7 shows sodium 135, potassium 3.7, chloride 97, CO2 of 38, glucose 135, BUN 21, creatinine 0.8. ASSESSMENT: 1. Nonischemic cardiomyopathy. 2. Status post implantable cardioverter defibrillator placement. 3. Esophageal plaques and gastritis. 4. Bilateral pleural effusion, right greater than left. RECOMMENDATIONS: Continue Flomax 0.4 mg once a day, Indocin 25 mg once a day, Lasix 40 mg intravenous twice a day, Toprol XL 25 mg once a day, Zestril 40 mg once a day, thiamine 100 mg once a day, both aspirin and Eliquis are on hold and will be resumed once cleared by Dr. Suresh and by the communications maintainer. Stewart Bloom MD
--- NOTE | 2018-09-04 18:39 | CP.PCM.CON ---
History of Present Illness - History of Present Illness History of Present Illness: This is an 88 year old man admitted with worsening dyspnea and palpitations on 08/25/2018 who was found to be mildly anemic. There is also a mention in Dr. Reynolds's note of blood in stool. Patient has difficulty swallowing solid food such as meat as well as tablets. He denies having nausea, vomiting, loss of appetite, heartburn, difficulty swallowing, rectal bleeding, diarrhea, constipation. Hemoglobin was 11.6 on admission and has dropped to 10.2. Iron indices are consistent with anemia of chronic disease: iron 29, TIBC 215, ferritin 338. Stool for occult blood is negative (one specimen). Review of Systems - Review of Systems All systems: reviewed and no additional remarkable complaints except - Constitutional Constitutional: absent: Fever - Gastrointestinal Gastrointestinal: absent: Abdominal Pain, Dysphagia, Heartburn, Hematochezia, Nausea, Vomiting Past Patient History - Infectious Disease Hx of Infectious Diseases: None - Past Medical History & Family History Past Medical History?: Yes - Past Social History Smoking Status: Never Smoked - CARDIAC Hx Hypertension: Yes - PULMONARY Hx Respiratory Disorders: No - NEUROLOGICAL Hx Neurological Disorder: No - HEENT Hx HEENT Problems: No - RENAL Hx Chronic Kidney Disease: No - ENDOCRINE/METABOLIC Hx Endocrine Disorders: No - HEMATOLOGICAL/ONCOLOGICAL Hx Blood Disorders: No - INTEGUMENTARY Hx Dermatological Problems: No - MUSCULOSKELETAL/RHEUMATOLOGICAL Hx Arthritis: Yes - GASTROINTESTINAL Hx Gastrointestinal Disorders: No - GENITOURINARY/GYNECOLOGICAL Hx Prostate Cancer: Yes - PSYCHIATRIC Hx Substance Use: No - SURGICAL HISTORY Hx Surgeries: Yes Hx Orthopedic Surgery: Yes - ANESTHESIA Hx Anesthesia: Yes Hx Anesthesia Reactions: No Meds Allergies/Adverse Reactions: Allergies Allergy/AdvReac Type Severity Reaction Status Date / Time No Known Allergies Allergy Verified 08/25/18 10:22 - Medications Medications: Current Medications Allopurinol (Zyloprim) 100 mg PO DAILY [facility] Last Admin: 09/04/18 09:38 Dose: 100 mg Apixaban (Eliquis) 2.5 mg PO BID [facility] Last Admin: 09/02/18 09:27 Dose: 2.5 mg Aspirin (Aspirin Chewable) 81 mg PO DAILY [facility] Last Admin: 09/02/18 09:27 Dose: 81 mg Calcium/Vitamin D (Oyster Shell Calcium/Vitamin D 500 Mg-200 Iu) 1 tab PO DAILY [facility] Last Admin: 09/04/18 09:37 Dose: 1 tab Docusate Sodium (Colace) 100 mg PO BID [facility] Last Admin: 09/04/18 09:38 Dose: 100 mg Furosemide (Lasix) 40 mg IVP BID [facility] Last Admin: 09/04/18 09:39 Dose: 40 mg Indomethacin (Indocin) 25 mg PO TID PRN PRN Reason: pain Last Admin: 09/03/18 07:09 Dose: 25 mg Lisinopril (Zestril) 40 mg PO DAILY [facility] Last Admin: 09/04/18 09:38 Dose: 40 mg Metoprolol Succinate (Toprol Xl) 25 mg PO DAILY [facility] Last Admin: 09/04/18 09:39 Dose: 25 mg Pantoprazole Sodium (Protonix Inj) 40 mg IVP Q12H [facility] Last Admin: 09/04/18 09:38 Dose: 40 mg Tamsulosin HCl (Flomax) 0.4 mg PO DAILY [facility] Last Admin: 09/04/18 09:38 Dose: 0.4 mg Thiamine HCl (Vitamin B1 Tab) 100 mg PO DAILY [facility] Last Admin: 09/04/18 09:38 Dose: 100 mg Physical Exam - Constitutional Appears: No Acute Distress - Head Exam Head Exam: ATRAUMATIC, NORMOCEPHALIC - Eye Exam Eye Exam: EOMI, PERRL - Neck Exam Neck exam: Negative for: Lymphadenopathy, Thyromegaly - Respiratory Exam Respiratory Exam: NORMAL BREATHING PATTERN. absent: Rales, Rhonchi, Wheezes - Cardiovascular Exam Cardiovascular Exam: REGULAR RHYTHM, +S1, +S2. absent: Gallop, Rubs, Systolic Murmur - GI/Abdominal Exam GI & Abdominal Exam: Normal Bowel Sounds, Soft. absent: Mass, Organomegaly, Tenderness - Rectal Exam Rectal Exam: Deferred - Extremities Exam Extremities exam: Negative for: calf tenderness, pedal edema Results - Vital Signs Recent Vital Signs: Last Vital Signs Temp 98 F 09/04/18 15:00 Pulse 67 09/04/18 15:00 Resp 20 09/04/18 15:00 BP 121/68 09/04/18 15:00 Pulse Ox 100 09/04/18 15:00 - Labs Result Diagrams: 09/04/18 07:32 09/04/18 07:32 Labs: Laboratory Results - last 24 hr 09/04/18 09/04/18 07:32 07:32 WBC 5.1 RBC 3.61 L Hgb 10.2 L Hct 31.6 L MCV 87.5 MCH 28.2 MCHC 32.2 L RDW 16.4 H Plt Count 142 MPV 8.7 Neut % (Auto) 61.0 Lymph % (Auto) 22.5 [place] % (Auto) 11.7 H Eos % (Auto) 3.8 Baso % (Auto) 1.0 Neut # (Auto) 3.1 Lymph # (Auto) 1.1 [place] # (Auto) 0.6 Eos # (Auto) 0.2 Baso # (Auto) 0.1 Sodium 135 Potassium 3.7 Chloride 97 L Carbon Dioxide 36 H Anion Gap 6 L BUN 21 H Creatinine 0.8 Est GFR ( Amer) > 60 Est GFR (Non-Af Amer) > 60 Random Glucose 135 H D Calcium 8.9 Assessment & Plan (1) Anemia Assessment and Plan: Iron indices are consistent with anemia of chronic disease. Stool occult blood (first specimen) was negative. Patient has difficulty swallowing solid foods and pills, and will have repeat dilatation as an outpatient. Colonoscopy can also be done as an outpatient. Status: Acute
--- NOTE | 2018-09-05 07:48 | CP.PCM.PN ---
Subjective - Date & Time of Evaluation Date of Evaluation: 09/05/18 Time of Evaluation: 07:46 - Subjective Subjective: Patient denies having nausea, vomiting, abdominal pain. He has not had a bowel movement so far this morning. Objective - Vital Signs/Intake and Output Vital Signs (last 24 hours): Temp Pulse Resp BP Pulse Ox 98 F 82 20 125/69 96 09/04/18 23:35 09/04/18 23:35 09/04/18 23:35 09/04/18 23:35 09/04/18 23:35 - Medications Medications: Current Medications Allopurinol (Zyloprim) 100 mg PO DAILY [facility] Last Admin: 09/04/18 09:38 Dose: 100 mg Apixaban (Eliquis) 2.5 mg PO BID [facility] Last Admin: 09/02/18 09:27 Dose: 2.5 mg Aspirin (Aspirin Chewable) 81 mg PO DAILY [facility] Last Admin: 09/02/18 09:27 Dose: 81 mg Calcium/Vitamin D (Oyster Shell Calcium/Vitamin D 500 Mg-200 Iu) 1 tab PO DAILY [facility] Last Admin: 09/04/18 09:37 Dose: 1 tab Docusate Sodium (Colace) 100 mg PO BID [facility] Last Admin: 09/04/18 18:40 Dose: 100 mg Furosemide (Lasix) 40 mg IVP BID [facility] Last Admin: 09/04/18 18:40 Dose: 40 mg Indomethacin (Indocin) 25 mg PO TID PRN PRN Reason: pain Last Admin: 09/03/18 07:09 Dose: 25 mg Lisinopril (Zestril) 40 mg PO DAILY [facility] Last Admin: 09/04/18 09:38 Dose: 40 mg Metoprolol Succinate (Toprol Xl) 25 mg PO DAILY [facility] Last Admin: 09/04/18 09:39 Dose: 25 mg Pantoprazole Sodium (Protonix Inj) 40 mg IVP Q12H [facility] Last Admin: 09/04/18 22:05 Dose: 40 mg Tamsulosin HCl (Flomax) 0.4 mg PO DAILY [facility] Last Admin: 09/04/18 09:38 Dose: 0.4 mg Thiamine HCl (Vitamin B1 Tab) 100 mg PO DAILY [facility] Last Admin: 09/04/18 09:38 Dose: 100 mg - Labs Labs: 09/04/18 07:32 09/04/18 07:32 PT 16.9 SECONDS (9.7-12.2) H 08/25/18 10:56 INR 1.5 08/25/18 10:56 APTT 36 SECONDS (21-34) H 08/25/18 10:56 - Constitutional Appears: No Acute Distress - Head Exam Head Exam: ATRAUMATIC, NORMOCEPHALIC - Eye Exam Eye Exam: EOMI, PERRL - Neck Exam Neck Exam: absent: Lymphadenopathy, Thyromegaly - Respiratory Exam Respiratory Exam: NORMAL BREATHING PATTERN. absent: Rales, Rhonchi, Wheezes - Cardiovascular Exam Cardiovascular Exam: REGULAR RHYTHM, +S1, +S2. absent: Gallop, Rubs, Murmur - GI/Abdominal Exam GI & Abdominal Exam: Soft, Normal Bowel Sounds. absent: Tenderness, Mass, Organomegaly - Rectal Exam Rectal Exam: Deferred - Extremities Exam Extremities Exam: absent: Calf Tenderness, Pedal Edema Assessment and Plan (1) Anemia Assessment & Plan: HGB is stable. On further questioning, patient has noted difficulty swallowing meat and tablets, which is consistent with the endoscopic findings of a Schatzki ring. Recommend soft diet and repeat dilatation in one month and colonoscopy, which can be performed as an outpatient. Status: Acute
[2018-09-05] MEDS: Calcium-Vit D 500 mg-200 Units Tab UD PO SCH (10:42)
[2018-09-05] MEDS: Metoprolol Succinate 25 mg XL Tab PO SCH (10:44)
[2018-09-05 16:15] VITALS: BP 140/85; PULSE 72; TEMP 97.6; O2SAT 98
--- NOTE | 2018-09-05 17:06 | PCM.HF ---
Heart Failure Core Measure - Heart Failure Ejection Fraction: Less Than 40 % DAVID Inhibitor Prescribed: Yes Beta-Bigg Prescribed: Metoprolol Succinate Angiotensin II Receptor Bigg Prescribed: No Contraindication/Reason for not providing: on david AnticoagulationTherapy for Atrial Fibrillation/Atrialflutter: Yes Aldosterone Antagonist Prescribed: No Contraindication/Reason for not providing: bp running low Hydralazine Nitrate Prescribed: No Contraindication/Reason for not providing: bp running low Implantable Cardioverter Defibrillator Therapy: No Contraindication/Reason for not providing: pt has AICD placed 3 days ago Cardiac Resynchronization Therapy Prescribed: No Contraindication/Reason for not providing: AICD placed 3 dasy ago - Follow up Will be discharged to: Home Follow Up Date (must be within 7 days from discharge): 09/08/18 Follow Up Time: 11:20
--- NOTE | 2018-09-05 17:10 | CP.PCM.PN ---
Subjective - Date & Time of Evaluation Date of Evaluation: 09/05/18 Time of Evaluation: 14:00 - Subjective Subjective: Patient seen today states feels better, denies ay chest pain, sob, dizziness, abdominal pain, N/V, no bloody stool reported , no bleeding noted at the AICD site , small echymotic area noted at chaparrita AICD site , wound clean an d dry hgb stable 11.6-10.2 s/p AICD , s/p EGD - Objective - Vital Signs/Intake and Output Vital Signs (last 24 hours): Temp Pulse Resp BP Pulse Ox 97.6 F 72 20 140/85 98 09/05/18 16:00 09/05/18 16:00 09/05/18 16:00 09/05/18 16:00 09/05/18 16:00 - Medications Medications: Current Medications Allopurinol (Zyloprim) 100 mg PO DAILY [facility] Last Admin: 09/05/18 10:42 Dose: 100 mg Apixaban (Eliquis) 2.5 mg PO BID [facility] Last Admin: 09/02/18 09:27 Dose: 2.5 mg Aspirin (Aspirin Chewable) 81 mg PO DAILY [facility] Last Admin: 09/02/18 09:27 Dose: 81 mg Calcium/Vitamin D (Oyster Shell Calcium/Vitamin D 500 Mg-200 Iu) 1 tab PO DAILY [facility] Last Admin: 09/05/18 10:42 Dose: 1 tab Docusate Sodium (Colace) 100 mg PO BID [facility] Last Admin: 09/05/18 10:43 Dose: 100 mg Fluconazole (Diflucan) 100 mg PO DAILY [facility]; Protocol Furosemide (Lasix) 40 mg IVP BID [facility] Last Admin: 09/05/18 10:43 Dose: 40 mg Indomethacin (Indocin) 25 mg PO TID PRN PRN Reason: pain Last Admin: 09/03/18 07:09 Dose: 25 mg Lisinopril (Zestril) 40 mg PO DAILY [facility] Last Admin: 09/05/18 10:41 Dose: 40 mg Metoprolol Succinate (Toprol Xl) 25 mg PO DAILY [facility] Last Admin: 09/05/18 10:44 Dose: 25 mg Pantoprazole Sodium (Protonix Inj) 40 mg IVP Q12H [facility] Last Admin: 09/05/18 08:40 Dose: 40 mg Tamsulosin HCl (Flomax) 0.4 mg PO DAILY [facility] Last Admin: 09/05/18 10:41 Dose: 0.4 mg Thiamine HCl (Vitamin B1 Tab) 100 mg PO DAILY [facility] Last Admin: 09/05/18 10:41 Dose: 100 mg - Labs Labs: 09/04/18 07:32 09/04/18 07:32 PT 16.9 SECONDS (9.7-12.2) H 08/25/18 10:56 INR 1.5 08/25/18 10:56 APTT 36 SECONDS (21-34) H 08/25/18 10:56 Assessment and Plan - Assessment and Plan (Free Text) Assessment: A/P 88 y/o M c PMHx afib, CHF presented with sob and worsening dyspnea on exertion for several weeks echo done - low EF S/P aicd S/P egd , which is consistent with the endoscopic findings of a Schatzki ring. Dr. alfaro Recommend soft diet and repeat dilatation in one month and colonoscopy, which can be performed as an outpatient. PTH cytology- Negative for malignant cells, + fungal organism ( clif) D/w Dr. Alfaro continue diflucan for 14 days D/w Dr. Suresh , ref restart eliquis and clearance for discharge , cleared for discharge from EP stand point and f/u with his office on Saturday at [address] Mortensen , cleared for discharge home today and f/u wiht his printer assistant and continue eliquis and aspirin D/w Dr. Spenser young , covering for Dr. Reynolds, cleared for discharge home today and f/u with his PMD next week discharge plan discussed with patient ,w ho understand and agrees with plan discussed ref, blood thinner including benefit and risks ( eliquis) patient instructed to returns to ED if symptoms returns or any other r concerning symptoms and call PMD if he noticed any bleeding
--- NOTE | 2018-09-05 19:31 | PN ---
DATE: 09/05/2018 SUBJECTIVE: The patient denies any chest pain or shortness of breath. No reported bleeding from the ICD site. PHYSICAL EXAMINATION: VITAL SIGNS: Blood pressure 125/69, heart rate 82, temperature 98, respirations 20. HEENT: Normocephalic. CHEST: Diminished breath sound on the right base. HEART: S1 and S2 regular. ABDOMEN: Soft. EXTREMITIES: No edema. ASSESSMENT: 1. Cardiomyopathy, status post implantable cardioverter defibrillator placement. 2. Status post venous bleeding from the implantable cardioverter defibrillator site. 3. Chronic atrial fibrillation. RECOMMENDATIONS: Resume aspirin 81 mg once a day, Eliquis 2.5 mg once a day, continue Lasix 20 mg intravenously twice a day, Toprol-XL 25 mg once a day, thiamine 100 mg once a day, Zestril 40 mg at once a day. The patient can be discharged from the cardiac point of view. Stewart Bloom MD
--- NOTE | 2018-09-10 05:35 | DS ---
HISTORY OF PRESENT ILLNESS AND HOSPITAL COURSE: The patient was admitted on 08/25/2018. He came in with progressive short of breath to the emergency room. He had also palpitation. His blood pressure was 161/101 when he came in, and his oxygen was okay. His pulse was 89. His lab showed hemoglobin of 11.6 and hematocrit of 36. His sugar was 189. His kidney function is normal. The patient was admitted and he was seen by Dr. Bloom for consultation. He was in congestive heart failure and he requested that the patient will need an ICD before discharge. He was seen by Dr. Suresh which is cardiac and electrophysiological study consult and to put on ICD for him. The patient was improving. He has a lot of pleural effusion. He was taken to the radiology department, and the fluid was taken out. His CAT scan of the abdomen and pelvis with contrast showed moderate right greater than left pleural effusion and associated compression consolidation. Small ascites noted in the abdomen that was shown in the CAT scan. Some fluid was taken out from him, and he became less short of breath. The patient also had blood pressure controlled before discharge on medications. He was taking the medications and was monitored. He had some urinary tract infection for which he was treated with antibiotics. He had some foot pain. He had some rectal bleeding. him for GI consultation. He was having no nausea or vomiting. He had hemoglobin 10.2 and hematocrit 31.6. His hemoglobin was stable, and he has no difficulty swallowing with tablets. He diagnosed him he has a Schatzki's ring, and he recommended for him soft diet. His stool occult was negative at this time, and he was having anemia of chronic disease. He was discharged after having the ICD by Dr. Suresh. He will be followed up by his financial management analyst. He was comfortably stable. His vital signs were controlled. MEDICATIONS: He was on medications of allopurinol, Eliquis, aspirin, calcium and vitamin D, Colace for constipation, Diflucan for the fungus, Lasix, lisinopril, metoprolol, pantoprazole, Flomax, and Thiamine. FINAL DIAGNOSES: Congestive heart failure, anemia, arrhythmia, chest pain, hypertension, and gout. Lyn Reynolds MD [facility] # [id number]
== END 2018-09-05 20:16 | disposition home or self-care (01) | DRG 308 ==
LOC: C.ER 10:08 → C.9E 12:13 → C.6T 13:51
PROVIDERS: ADMIT Internal Medicine; ATTEND Internal Medicine
PROC: 0W993ZX Drainage of Right Pleural Cavity, Percutaneous Approach, Diagnostic (ICD-10-PCS; principal; 2018-08-27)
PROC: 0DB68ZX Excision of Stomach, Via Natural or Artificial Opening Endoscopic, Diagnostic (ICD-10-PCS; 2018-09-03)
PROC: 0D748ZZ Dilation of Esophagogastric Junction, Via Natural or Artificial Opening Endoscopic (ICD-10-PCS; 2018-09-03)
DX: I48.2 Chronic atrial fibrillation (principal); I50.23 Acute on chronic systolic (congestive) heart failure; J90 Pleural effusion, not elsewhere classified; B37.81 Candidal esophagitis; L76.32 Postprocedural hematoma of skin and subcutaneous tissue following other procedure; R18.8 Other ascites; N39.0 Urinary tract infection, site not specified; K92.1 Melena; I11.0 Hypertensive heart disease with heart failure; I42.0 Dilated cardiomyopathy; N40.0 Benign prostatic hyperplasia without lower urinary tract symptoms; Z85.46 Personal history of malignant neoplasm of prostate; M10.9 Gout, unspecified; M19.90 Unspecified osteoarthritis, unspecified site; E11.65 Type 2 diabetes mellitus with hyperglycemia; Z87.891 Personal history of nicotine dependence; Z79.01 Long term (current) use of anticoagulants; D63.8 Anemia in other chronic diseases classified elsewhere; K22.2 Esophageal obstruction; K29.70 Gastritis, unspecified, without bleeding; Y83.8 Other surgical procedures as the cause of abnormal reaction of the patient, or of later complication, without mention of misadventure at the time of the procedure